=== PATIENT | female | born 1990 | race Hispanic/Latino ===

== ENCOUNTER 2017-10-22 13:36 | Observation (INO) | payer MEDICAID ==
[2017-10-22] MEDS ORDERED: LACTATED RINGERS 1,000 ML ONE (14:11)
[2017-10-22] MEDS ORDERED: LACTATED RINGERS 1,000 ML IV ONE (14:28)
[2017-10-22 14:54] LABS: Bilirubin,Urine NEG (Negative); Blood,Urine NEG (Negative); Color,Urine Yellow (Yellow); Hyaline Casts,Urine 2 /LPF; Mucus,Urine 3+ /HPF; Nitrite,Urine NEG (Negative); Urobilinogen,Urine < 2.0 mg/dL (<2.0)
[2017-10-22 15:51] LABS: Basophils % (Auto) 0.1 % (0.0-1.8); Eosinophils % (Auto) 0.2 % (0.0-4.3); Hematocrit 29.1 % (30.3-42.9); Hemoglobin 9.7 gm/dl (10.1-14.3); Lymphocytes # (Auto) 0.6 K/mm3 (1.2-5.4); Mean Corpuscular HGB Conc 33 % (30-34); Mean Corpuscular Hemoglobin 30 pg (28-32); Mean Corpuscular Volume 91 fl (79-97); Monocytes # (Auto) 0.5 K/mm3 (0.0-0.8); Monocytes % (Auto) 4.9 % (0.0-7.3); Red Cell Distribution Width 14.8 % (13.2-15.2)
--- NOTE | 2017-10-22 15:54 | History and Physical Report ---
History of Present Illness Date of examination: 10/22/17 (pt sent from office with flu sx) History of present illness: EDC Confirmation: 11/21/2017 Gestational Age: 11 weeks Past History : 3 Term Births: 1 Premature Births: 0 Living Children: 1 Para: 1 Mult. Births: 0 Prev : 0 Aborta: 1 Elect. Ab: 1 Spont. Ab: 1 Ectopics: 0 # 1 Delivery date: 11/11/2014 Weeks Gestation: 15 Delivery type: Vaginal Hours of labor: 30 Anesthesia type: epidural Delivery location: [facility] Sex: unknown weight: 0.94 Comments: / induction # 2 Delivery date: 02/29/2016 Weeks Gestation: 39 Delivery type: Vaginal Anesthesia type: epidural Delivery location: [facility] Infant Sex: female weight: 7.06 Comments: gestational diabetes; drug use; depression Past Medical History: Reviewed history from 02/09/2016 and no changes required: H/o drug abuse Depression hospitalized x 10 weeks(2015) Past Surgical History: Reviewed history from 02/13/2012 and no changes required: Negative Past Surgical History Past Medical History Abnormal PAP: negative TAMMY Exposure: negative Infertility: negative Uterine Anomaly: negative Uterine Surgery (not C/S): negative Other Gynecologic Problems: negative Social Hx: Patient is single ist time: 18 yo hx drug use and inpatient drug treatment Infection History Hx of STD: none HIV Risk Eval: no Hepatitis B Risk Eval: low risk Personal hx. of genital herpes: no Partner hx. of genital herpes: no Rash, Viral, or Febrile illness since last LMP? no Varicella/Chicken Pox Status: Previous Disease Genetic History Congenital Heart Defect: Mom: no Dad: no Jose Disease: Mom: no Dad: no Thalassemia Mom: no Dad: no Neural Tube Defect Mom: no Dad: no Down's Syndrome Mom: no Dad: no Sukhdev-Sachs Mom: no Dad: no Sickle Cell Disease/Trait Mom: no Dad: no Hemophilia Mom: no Dad: no Muscular Dystrophy Mom: no Dad: no Cystic Fibrosis Mom: no Dad: no Adriano Chorea Mom: no Dad: no Mental Retardation Mom: no Dad: no Fragile X Mom: no Dad: no Other Genetic/Chromosomal Disorder Mom: no Dad: no Child w/other defect Mom: no Dad: no Enviromental Exposures Xray Exposure: no Medication, drug, or alcohol use since LMP: no Chemical/Other Exposure: no Exposure to Cat Liter: no Hx of Parvovirus (Fifth Disease): no Occupational Exposure to Children: none Active Medications (reviewed today): IBUPROFEN 600 MG TABS (IBUPROFEN) 1 po q6hrs as directed prn FERROUS SULFATE 325 (65 FE) MG TABS (FERROUS SULFATE) 1 po BID CELEXA 10MG () PLUS 27-1 MG TABS ( VIT-FE FUMARATE-FA) 1 po Current Allergies (reviewed today): * PNC (Critical) Laboratory Results Routine Urinalysis Leukocytes: 2+ Nitrite: negative Urobilinogen: negative Protein: negative Blood: negative Ketone: negative Bilirubin: negative Glucose: negative Urine HCG: positive Review of Systems General Denies fever, chills, sweats, anorexia, fatigue, weakness, malaise, weight loss and sleep disorder. Complains of nausea and vomiting. Denies headache, swelling of legs, abdominal pain, vaginal discharge, vaginal bleeding and contractions. Denies vaginal discharge, incontinence, dysuria, hematuria, urinary frequency, amenorrhea, menorrhagia, abnormal vaginal bleeding, pelvic pain, genital sores, decreased libido, painful periods, painful sex, urinary urgency, hot flashes, vaginal dryness, vaginal itching and vaginal odor. CV Denies chest pains, palpitations, syncope, dyspnea on exertion, orthopnea, PND and peripheral edema. Resp Denies cough, dyspnea at rest, excessive sputum, hemoptysis, wheezing and pleurisy. GI Denies nausea, vomiting, diarrhea, constipation, change in bowel habits, abdominal pain, melena, hematochezia, jaundice, gas/bloating, indigestion/ heartburn, dysphagia and odynophagia. Endo Denies cold intolerance, heat intolerance, polydipsia, polyphagia, polyuria and unusual weight change. Breast Denies left breast lump, right breast lump, nipple discharge, bloody discharge from nipple, breast pain, abnormal mammogram and breast enlargement. MS Denies back pain, joint pain, joint swelling, muscle cramps, muscle weakness, stiffness, arthritis, sciatica, restless legs, leg pain at night and leg pain with exertion. Derm Denies rash, itching, dryness and suspicious lesions. Neuro Denies paralysis, paresthesias, headache, seizures, tremors, vertigo, transient blindness, frequent falls, frequent headaches and difficulty walking. Psych Denies depression, anxiety, irritability and mood swings. Eyes Denies blurring, diplopia, irritation, discharge, vision loss, eye pain and photophobia. ENT Denies earache, ear discharge, tinnitus, decreased hearing, nasal congestion, nosebleeds, sore throat and hoarseness. Allergy Denies urticaria, allergic rash, hay fever and recurrent infections. Heme Denies abnormal bruising, bleeding and enlarged lymph nodes. PHYSICAL EXAM HEENT: PERRLA, normal conjunctiva, external nose and nasal mucosa normal, oropharynx clear Neck/Thyroid: supple, thyroid normal Skin no significant abnormal lesions or rashes Chest: respiratory effort normal, clear to auscultation Breasts: normal without skin changes or masses CV: regular, normal S1-S2, no murmur, no rub, no gallop Abdomen: normal bowel sounds, soft, nontender, no HSM Musculoskeletal: grossly normal ROM in joints, no joint tenderness or muscle weakness Neuro: grossly normal DTRs, sensation, strength, cranial nerves Extremities: no clubbing, cyanosis, or edema [employer] Exams Vulva/Vagina: No lesions, normal BUS, normal rugae Cervix: No lesions; no cervical motion tenderness Uterus: normal size and position, midline, mobile Fundal Ht: 10-12wks size: AGA FHT: + Adnexae: no masses or tenderness Rectovaginal: no masses or tenderness Past History - Obstetrical History Expected Date of Delivery: 11/21/17 Actual Gestation: 35 Week(s) 6 Day(s) : 3 Para: 1 Hx # Term Pregnancies: 1 Spontaneous Abortions: 1 (demise @ 15 weeks) Number of Living Children: 1 Medications and Allergies Allergies Allergy/AdvReac Type Severity Reaction Status Date / Time Penicillins Allergy Unknown Verified 11/09/14 13:11 tree nut Allergy Swelling Verified 11/09/14 13:12 Home Medications Medication Instructions Recorded Confirmed Last Taken Type Promethazine [Phenergan TAB] 25 mg PO PRN PRN 10/22/17 10/22/17 10/22/17 History Benzonatate [Tessalon Perles] 100 mg PO Q8HR PRN #20 capsule 10/23/17 Unknown Rx Active Meds: Active Medications Acetaminophen (Tylenol) 1,000 mg PO Q6H PRN PRN Reason: Pain, Mild (1-3) Lactated Ringer's (Lactated Ringers) 1,000 mls @ 500 mls/hr IV DIRECT MINOR Oseltamivir Phosphate (Tamiflu) 75 mg PO BID MINOR Stop: 10/26/17 22:01 - Vital Signs Vital signs: Vital Signs Temp Resp 100.3 F H 20 10/22/17 14:00 10/22/17 14:00 Temp Pulse Resp BP Pulse Ox 100.3 F H 138 H 20 112/67 99 10/22/17 14:00 10/22/17 15:55 10/22/17 14:00 10/22/17 15:37 10/22/17 15:55 - Physical Exam Breasts: Positive: deferred Cardiovascular: Regular rate, Normal S1, Normal S2 Lungs: Positive: Other (cough; mild wheezing) Abdomen: Positive: normal appearance, soft, normal bowel sounds. Negative: distention, tenderness Genitourinary (Female): Positive: normal external genitalia Vulva: both: normal Vagina: Positive: normal moisture. Negative: discharge Cervix: Negative: lesion, discharge Uterus: Positive: normal size, normal contour Adnexa: both: normal Anus/Rectum: Positive: normal perianal skin, heme negative. Negative: rectal mass, hemorrhoids Extremities: Deep Tendon Reflex Grade: Normal +2 - Obstetrical FHR: category 1 (tachycardia; pt is febrile/dehydrated) Uterine Contraction Monitor Mode: External Uterine Contraction Pattern: Irregular Uterine Tone Measurement Phase: Resting Uterine Contraction Intensity: Mild Results Result Diagrams: 10/22/17 14:15 10/22/17 14:15 Abnormal lab results 10/22/17 Range/Units 14:00 Urine WBC (Auto) 21.0 H (0.0-6.0) /HPF U Epithel Cells (Auto) 28.0 H (0-13.0) /HPF All other labs normal. HBsAg Screen Negative Negative *1 Rubella Antibodies, IgG 2.32 index Immune >0.99 *2 Non-immune <0.90 Equivocal 0.90 - 0.99 Immune >0.99 ABO Grouping B *3 Rh Factor Positive *4 Please note: Prior records for this patient's ABO / Rh type are not available for additional verification. Antibody Screen Negative Negative *5 RPR Non Reactive Non Reactive *6 WBC 8.3 x10E3/uL 3.4-10.8 *7 RBC 4.04 x10E6/uL 3.77-5.28 *8 Hemoglobin 12.9 g/dL 11.1-15.9 *9 Hematocrit 39.0 % 34.0-46.6 *10 MCV 97 fL 79-97 *11 MCH 31.9 pg 26.6-33.0 *12 MCHC 33.1 g/dL 31.5-35.7 *13 RDW 14.2 % 12.3-15.4 *14 Platelets [L] 128 x10E3/uL 150-379 *15 Neutrophils 69 % *16 Lymphs 25 % *17 Monocytes 4 % *18 Eos 2 % *19 Basos 0 % *20 ! Immature Cells <No Reported Value> *21 Neutrophils (Absolute) 5.8 x10E3/uL 1.4-7.0 *22 Lymphs (Absolute) 2.0 x10E3/uL 0.7-3.1 *23 Monocytes(Absolute) 0.3 x10E3/uL 0.1-0.9 *24 Eos (Absolute) 0.2 x10E3/uL 0.0-0.4 *25 Baso (Absolute) 0.0 x10E3/uL 0.0-0.2 *26 ! Immature Granulocytes 0 % *27 ! Immature Grans (Abs) 0.0 x10E3/uL 0.0-0.1 *28 ! NRBC <No Reported Value> *29 Hematology Comments: <No Reported Value> *30 Tests: (2) AFP Tetra ([id number]) ! Results Report *31 ! Test Results: *Screen Negative* *32 ! Tests: (3) Cystic Fibrosis Profile (381587) ! CF, Screen Comment: *55 RESULTS: Negative for 32 mutations analyzed Tests: (4) HB Solu + Rflx Fra (834235) Hemoglobin (Hgb) Solubility Negative Negative *57 Tests: (5) Panel [id number] ([id number]) HIV Screen 4th Generation wRfx Non Reactive Non Reactive *58 Tests: (6) HCV Ab w/Rflx to Verification ([id number]) ! HCV Ab <0.1 s/co ratio 0.0-0.9 *59 Tests: (7) Comment: ([id number]) ! Comment: SPRCS *60 Non reactive HCV antibody screen is consistent with no HCV infection, unless recent infection is suspected or other evidence exists to indicate HCV infection. Tests: (8) Urine Culture, Routine ([id number]) Urine Culture, Routine Final report *61 Tests: (9) Result ([id number]) ! Result 1 No growth *62 Assessment and Plan Rapid flu negative. Will observe due to tachy and ctx Consulted with Orders as noted
[2017-10-22] MEDS ORDERED: VISTARIL IM PRN (15:58)
[2017-10-22] MEDS ORDERED: PHENERGAN PR PRN (15:58)
[2017-10-22] MEDS ORDERED: LACTATED RINGERS 1,000 ML IV SCH (16:00)
[2017-10-22 16:06] LABS: Alanine Aminotransferase 8 units/L (7-56); Albumin 3.1 g/dL (3.9-5); BUN/Creatinine Ratio 10; Blood Urea Nitrogen 4 mg/dL (7-17); Calcium 8.4 mg/dL (8.4-10.2); Hemolysis Index 36
[2017-10-22 16:25] LABS: Platelet Count 96 K/mm3 (140-440)
[2017-10-22 16:51] LABS: Amphetamine Screen,Urine PRESUMPTIVE NEGATIVE; Benzodiazepines Screen,Urine PRESUMPTIVE NEGATIVE; Cannabinoid Screen,Urine PRESUMPTIVE NEGATIVE; Cocaine Screen,Urine PRESUMPTIVE NEGATIVE; Methadone Screen,Urine PRESUMPTIVE NEGATIVE; Opiate Screen,Urine PRESUMPTIVE NEGATIVE
[2017-10-22] MEDS: TYLENOL PO PRN ×2 (16:57→22:16)
[2017-10-22] MEDS ORDERED: SUDAFED 12 HR PO PRN (16:59)
[2017-10-22] MEDS ORDERED: DEEP SEA NS PRN (17:00)
[2017-10-22] MEDS ORDERED: BENADRYL PO PRN (17:00)
[2017-10-22] MEDS ORDERED: SUDAFED PO PRN (17:00)
[2017-10-22] MEDS ORDERED: TYLENOL PO PRN (17:00)
[2017-10-22] MEDS ORDERED: GUAIFENESIN DM SYRUP PO PRN (17:00)
[2017-10-22] MEDS ORDERED: COLACE PO PRN (17:00)
[2017-10-22] MEDS: TAMIFLU PO SCH (17:16)
[2017-10-22] MEDS ORDERED: PEPCID IV ONE ×2 (18:44→19:00)
[2017-10-22] MEDS: ZOFRAN IV PRN (18:49)
[2017-10-22] MEDS: LACTATED RINGERS 1,000 ML IV SCH ×2 (20:34→23:11)
[2017-10-23] MEDS: LACTATED RINGERS 1,000 ML IV SCH (03:59)
[2017-10-23] MEDS: ZOFRAN IV PRN (04:53)
[2017-10-23] MEDS: TYLENOL PO PRN (05:42)
[2017-10-23] MEDS: TAMIFLU PO SCH (05:42)
[2017-10-23] MEDS ORDERED: TESSALON PERLES PO SCH (06:00)
--- NOTE | 2017-10-23 06:05 | Progress Note ---
Assessment and Plan Pt resting c/o coughing states the cough syrup bone her chest Will order Tessalon perles Stop Tamilflu Flu screen negative Will encourage pt to use IS Will consult with maternal HR >110 Subjective - Subjective Date of service: 10/23/17 ( tachy continues; occassional ctx) Interval history: EDC Confirmation: 11/21/2017 Gestational Age: 11 weeks Past History : 3 Term Births: 1 Premature Births: 0 Living Children: 1 Para: 1 Mult. Births: 0 Prev : 0 Aborta: 1 Elect. Ab: 1 Spont. Ab: 1 Ectopics: 0 # 1 Delivery date: 11/11/2014 Weeks Gestation: 15 Delivery type: Vaginal Hours of labor: 30 Anesthesia type: epidural Delivery location: [facility] Sex: unknown weight: 0.94 Comments: / induction # 2 Delivery date: 02/29/2016 Weeks Gestation: 39 Delivery type: Vaginal Anesthesia type: epidural Delivery location: [facility] Sex: female weight: 7.06 Comments: gestational diabetes; drug use; depression Past Medical History: Reviewed history from 02/09/2016 and no changes required: H/o drug abuse Depression hospitalized x 10 weeks(2015) Past Surgical History: Reviewed history from 02/13/2012 and no changes required: Negative Past Surgical History Past Medical History Abnormal PAP: negative TAMMY Exposure: negative Infertility: negative Uterine Anomaly: negative Uterine Surgery (not C/S): negative Other Gynecologic Problems: negative Social Hx: Patient is single ist time: 18 yo hx drug use and inpatient drug treatment Infection History Hx of STD: none HIV Risk Eval: no Hepatitis B Risk Eval: low risk Personal hx. of genital herpes: no Partner hx. of genital herpes: no Rash, Viral, or Febrile illness since last LMP? no Varicella/Chicken Pox Status: Previous Disease Genetic History Congenital Heart Defect: Mom: no Dad: no Jose Disease: Mom: no Dad: no Thalassemia Mom: no Dad: no Neural Tube Defect Mom: no Dad: no Down's Syndrome Mom: no Dad: no Sukhdev-Sachs Mom: no Dad: no Sickle Cell Disease/Trait Mom: no Dad: no Hemophilia Mom: no Dad: no Muscular Dystrophy Mom: no Dad: no Cystic Fibrosis Mom: no Dad: no [employer] Chorea Mom: no Dad: no Mental Retardation Mom: no Dad: no Fragile X Mom: no Dad: no Other Genetic/Chromosomal Disorder Mom: no Dad: no Child w/other defect Mom: no Dad: no Enviromental Exposures Xray Exposure: no Medication, drug, or alcohol use since LMP: no Chemical/Other Exposure: no Exposure to Cat Liter: no Hx of Parvovirus (Fifth Disease): no Occupational Exposure to Children: none Active Medications (reviewed today): IBUPROFEN 600 MG TABS (IBUPROFEN) 1 po q6hrs as directed prn FERROUS SULFATE 325 (65 FE) MG TABS (FERROUS SULFATE) 1 po BID CELEXA 10MG () PLUS 27-1 MG TABS ( VIT-FE FUMARATE-FA) 1 po Current Allergies (reviewed today): * PNC (Critical) Laboratory Results Routine Urinalysis Leukocytes: 2+ Nitrite: negative Urobilinogen: negative Protein: negative Blood: negative Ketone: negative Bilirubin: negative Glucose: negative Urine HCG: positive Review of Systems General Denies fever, chills, sweats, anorexia, fatigue, weakness, malaise, weight loss and sleep disorder. Complains of nausea and vomiting. Denies headache, swelling of legs, abdominal pain, vaginal discharge, vaginal bleeding and contractions. Denies vaginal discharge, incontinence, dysuria, hematuria, urinary frequency, amenorrhea, menorrhagia, abnormal vaginal bleeding, pelvic pain, genital sores, decreased libido, painful periods, painful sex, urinary urgency, hot flashes, vaginal dryness, vaginal itching and vaginal odor. CV Denies chest pains, palpitations, syncope, dyspnea on exertion, orthopnea, PND and peripheral edema. Resp Denies cough, dyspnea at rest, excessive sputum, hemoptysis, wheezing and pleurisy. GI Denies nausea, vomiting, diarrhea, constipation, change in bowel habits, abdominal pain, melena, hematochezia, jaundice, gas/bloating, indigestion/ heartburn, dysphagia and odynophagia. Endo Denies cold intolerance, heat intolerance, polydipsia, polyphagia, polyuria and unusual weight change. Breast Denies left breast lump, right breast lump, nipple discharge, bloody discharge from nipple, breast pain, abnormal mammogram and breast enlargement. MS Denies back pain, joint pain, joint swelling, muscle cramps, muscle weakness, stiffness, arthritis, sciatica, restless legs, leg pain at night and leg pain with exertion. Derm Denies rash, itching, dryness and suspicious lesions. Neuro Denies paralysis, paresthesias, headache, seizures, tremors, vertigo, transient blindness, frequent falls, frequent headaches and difficulty walking. Psych Denies depression, anxiety, irritability and mood swings. Eyes Denies blurring, diplopia, irritation, discharge, vision loss, eye pain and photophobia. ENT Denies earache, ear discharge, tinnitus, decreased hearing, nasal congestion, nosebleeds, sore throat and hoarseness. Allergy Denies urticaria, allergic rash, hay fever and recurrent infections. Heme Denies abnormal bruising, bleeding and enlarged lymph nodes. PHYSICAL EXAM HEENT: PERRLA, normal conjunctiva, external nose and nasal mucosa normal, oropharynx clear Neck/Thyroid: supple, thyroid normal Skin no significant abnormal lesions or rashes Chest: respiratory effort normal, clear to auscultation Breasts: normal without skin changes or masses CV: regular, normal S1-S2, no murmur, no rub, no gallop Abdomen: normal bowel sounds, soft, nontender, no HSM Musculoskeletal: grossly normal ROM in joints, no joint tenderness or muscle weakness Neuro: grossly normal DTRs, sensation, strength, cranial nerves Extremities: no clubbing, cyanosis, or edema [employer] Exams Vulva/Vagina: No lesions, normal BUS, normal rugae Cervix: No lesions; no cervical motion tenderness Uterus: normal size and position, midline, mobile Fundal Ht: 10-12wks size: AGA FHT: + Adnexae: no masses or tenderness Rectovaginal: no masses or tenderness Patient reports: movement normal, other ("I feel like crap.") Objective - Vital Signs Vital Signs: Vital Signs - 12hr 10/22/17 10/22/17 10/22/17 19:18 19:21 19:26 Temperature 98.8 F Pulse Rate 133 H 130 H 124 H Respiratory 13 Rate Blood Pressure 96/60 Blood Pressure 96/60 [Right] O2 Sat by Pulse 96 96 Oximetry 10/22/17 10/22/17 10/22/17 19:31 19:36 19:41 Temperature Pulse Rate 125 H 124 H 124 H Respiratory Rate Blood Pressure Blood Pressure [Right] O2 Sat by Pulse 95 97 97 Oximetry 10/22/17 10/22/17 10/22/17 19:53 19:58 20:03 Temperature Pulse Rate 128 H 115 H 110 H Respiratory Rate Blood Pressure 97/56 Blood Pressure [Right] O2 Sat by Pulse 97 97 97 Oximetry 10/22/17 10/22/17 10/22/17 20:08 20:13 20:18 Temperature Pulse Rate 96 H 116 H 116 H Respiratory Rate Blood Pressure Blood Pressure [Right] O2 Sat by Pulse 97 98 96 Oximetry 10/22/17 10/22/17 10/22/17 20:23 20:28 20:37 Temperature Pulse Rate 119 H 114 H 125 H Respiratory Rate Blood Pressure 93/56 Blood Pressure [Right] O2 Sat by Pulse 95 97 99 Oximetry 10/22/17 10/22/17 10/22/17 20:42 20:47 20:52 Temperature Pulse Rate 121 H 113 H 121 H Respiratory Rate Blood Pressure Blood Pressure [Right] O2 Sat by Pulse 97 99 100 Oximetry 10/22/17 10/22/17 10/22/17 20:57 21:02 21:16 Temperature Pulse Rate 119 H 120 H 90 Respiratory Rate Blood Pressure Blood Pressure [Right] O2 Sat by Pulse 99 100 70 L Oximetry 10/22/17 10/22/17 10/22/17 21:17 21:22 21:27 Temperature Pulse Rate 127 H 121 H 125 H Respiratory Rate Blood Pressure Blood Pressure [Right] O2 Sat by Pulse 100 99 100 Oximetry 10/22/17 10/22/17 10/22/17 21:30 21:32 21:33 Temperature 98.7 F Pulse Rate 125 H 120 H 118 H Respiratory 12 Rate Blood Pressure 102/66 Blood Pressure 102/66 [Right] O2 Sat by Pulse 100 100 Oximetry 10/22/17 10/22/17 10/22/17 21:37 21:42 21:47 Temperature Pulse Rate 119 H 128 H 122 H Respiratory Rate Blood Pressure Blood Pressure [Right] O2 Sat by Pulse 99 99 100 Oximetry 10/22/17 10/22/17 10/22/17 21:52 21:57 22:02 Temperature Pulse Rate 116 H 114 H 116 H Respiratory Rate Blood Pressure Blood Pressure [Right] O2 Sat by Pulse 100 99 99 Oximetry 10/22/17 10/22/17 10/22/17 22:07 22:12 22:16 Temperature Pulse Rate 115 H 119 H 129 H Respiratory Rate Blood Pressure Blood Pressure [Right] O2 Sat by Pulse 99 98 82 L Oximetry 10/22/17 10/22/17 10/22/17 22:17 22:18 22:22 Temperature 98.4 F Pulse Rate 131 H 121 H 127 H Respiratory Rate Blood Pressure Blood Pressure [Right] O2 Sat by Pulse 98 100 Oximetry 10/22/17 10/22/17 10/22/17 22:27 22:32 22:37 Temperature Pulse Rate 118 H 115 H 119 H Respiratory Rate Blood Pressure Blood Pressure [Right] O2 Sat by Pulse 99 98 99 Oximetry 10/22/17 10/22/17 10/22/17 22:40 22:42 22:47 Temperature Pulse Rate 117 H 121 H 122 H Respiratory Rate Blood Pressure 97/59 Blood Pressure [Right] O2 Sat by Pulse 99 98 Oximetry 10/22/17 10/22/17 10/22/17 22:52 23:01 23:06 Temperature Pulse Rate 119 H 123 H 122 H Respiratory Rate Blood Pressure Blood Pressure [Right] O2 Sat by Pulse 98 100 97 Oximetry 10/22/17 10/22/17 10/22/17 23:11 23:16 23:21 Temperature Pulse Rate 117 H 108 H 113 H Respiratory Rate Blood Pressure Blood Pressure [Right] O2 Sat by Pulse 99 99 97 Oximetry 10/22/17 10/22/17 10/22/17 23:26 23:31 23:36 Temperature Pulse Rate 102 H 102 H 94 H Respiratory Rate Blood Pressure Blood Pressure [Right] O2 Sat by Pulse 98 98 98 Oximetry 10/22/17 10/22/17 10/22/17 23:41 23:46 23:57 Temperature Pulse Rate 96 H 115 H 119 H Respiratory Rate Blood Pressure Blood Pressure [Right] O2 Sat by Pulse 98 99 98 Oximetry 10/23/17 10/23/17 10/23/17 00:02 00:07 00:12 Temperature Pulse Rate 119 H 120 H 119 H Respiratory Rate Blood Pressure Blood Pressure [Right] O2 Sat by Pulse 97 97 96 Oximetry 10/23/17 10/23/17 10/23/17 00:17 00:22 00:27 Temperature Pulse Rate 118 H 114 H 115 H Respiratory Rate Blood Pressure Blood Pressure [Right] O2 Sat by Pulse 96 96 95 Oximetry 10/23/17 10/23/17 10/23/17 00:32 01:44 01:48 Temperature 98.3 F Pulse Rate 122 H 115 H 122 H Respiratory 13 Rate Blood Pressure 101/54 Blood Pressure 101/54 [Right] O2 Sat by Pulse 96 98 97 Oximetry 10/23/17 10/23/17 10/23/17 01:53 01:58 02:03 Temperature Pulse Rate 115 H 108 H 111 H Respiratory Rate Blood Pressure Blood Pressure [Right] O2 Sat by Pulse 96 96 96 Oximetry 10/23/17 10/23/17 10/23/17 02:08 02:13 02:18 Temperature Pulse Rate 112 H 113 H 114 H Respiratory Rate Blood Pressure Blood Pressure [Right] O2 Sat by Pulse 97 97 96 Oximetry 10/23/17 10/23/17 10/23/17 02:23 02:28 02:33 Temperature Pulse Rate 116 H 115 H 115 H Respiratory Rate Blood Pressure Blood Pressure [Right] O2 Sat by Pulse 96 96 97 Oximetry 10/23/17 10/23/17 10/23/17 02:38 02:39 02:43 Temperature Pulse Rate 117 H 126 H 109 H Respiratory Rate Blood Pressure 90/60 Blood Pressure [Right] O2 Sat by Pulse 97 99 Oximetry 10/23/17 10/23/17 10/23/17 02:48 02:53 02:58 Temperature Pulse Rate 110 H 100 H 103 H Respiratory Rate Blood Pressure Blood Pressure [Right] O2 Sat by Pulse 99 99 97 Oximetry 10/23/17 10/23/17 10/23/17 03:03 03:08 03:13 Temperature Pulse Rate 108 H 109 H 123 H Respiratory Rate Blood Pressure Blood Pressure [Right] O2 Sat by Pulse 83 L 97 98 Oximetry 10/23/17 10/23/17 10/23/17 03:18 03:23 03:28 Temperature Pulse Rate 111 H 110 H 103 H Respiratory Rate Blood Pressure Blood Pressure [Right] O2 Sat by Pulse 94 95 96 Oximetry 10/23/17 10/23/17 10/23/17 03:30 03:33 03:37 Temperature Pulse Rate 112 H 112 H 111 H Respiratory Rate Blood Pressure Blood Pressure [Right] O2 Sat by Pulse 94 95 94 Oximetry 10/23/17 10/23/17 10/23/17 03:38 03:39 03:43 Temperature Pulse Rate 109 H 115 H 111 H Respiratory Rate Blood Pressure 86/51 Blood Pressure [Right] O2 Sat by Pulse 94 94 Oximetry 10/23/17 10/23/17 10/23/17 03:44 03:48 03:53 Temperature Pulse Rate 112 H 117 H 114 H Respiratory Rate Blood Pressure Blood Pressure [Right] O2 Sat by Pulse 94 93 94 Oximetry 10/23/17 10/23/17 10/23/17 03:58 04:01 04:03 Temperature Pulse Rate 115 H 108 H 111 H Respiratory Rate Blood Pressure Blood Pressure [Right] O2 Sat by Pulse 92 94 94 Oximetry 10/23/17 10/23/17 10/23/17 04:08 04:13 04:18 Temperature Pulse Rate 120 H 114 H 113 H Respiratory Rate Blood Pressure Blood Pressure [Right] O2 Sat by Pulse 92 94 92 Oximetry 10/23/17 10/23/17 10/23/17 04:21 04:23 04:28 Temperature Pulse Rate 107 H 105 H 124 H Respiratory Rate Blood Pressure Blood Pressure [Right] O2 Sat by Pulse 94 91 94 Oximetry 10/23/17 10/23/17 10/23/17 04:33 04:38 04:39 Temperature Pulse Rate 110 H 116 H 120 H Respiratory Rate Blood Pressure 92/50 Blood Pressure [Right] O2 Sat by Pulse 98 98 Oximetry 10/23/17 10/23/17 10/23/17 04:41 04:43 04:50 Temperature Pulse Rate 122 H 120 H 137 H Respiratory Rate Blood Pressure Blood Pressure [Right] O2 Sat by Pulse 94 94 98 Oximetry 10/23/17 10/23/17 10/23/17 04:55 05:00 05:05 Temperature Pulse Rate 129 H 123 H 122 H Respiratory Rate Blood Pressure Blood Pressure [Right] O2 Sat by Pulse 99 98 99 Oximetry 10/23/17 10/23/17 10/23/17 05:07 05:10 05:15 Temperature Pulse Rate 56 L 111 H 106 H Respiratory Rate Blood Pressure Blood Pressure [Right] O2 Sat by Pulse 88 100 97 Oximetry 10/23/17 10/23/17 10/23/17 05:20 05:32 05:41 Temperature 100.6 F H Pulse Rate 105 H 105 H 122 H Respiratory 14 Rate Blood Pressure 101/55 Blood Pressure [Right] O2 Sat by Pulse 97 Oximetry 10/23/17 10/23/17 10/23/17 05:50 05:55 06:00 Temperature Pulse Rate 116 H 125 H 122 H Respiratory Rate Blood Pressure Blood Pressure [Right] O2 Sat by Pulse 96 98 96 Oximetry - Exam Breasts: deferred Cardiovascular: Regular rate Lungs: Other (nonproductive cough) Abdomen: Present: normal appearance, soft. Absent: distention, tenderness Uterus: Present: normal FHR: auscultation normal, other (tachycardia + variability) Uterine Contraction Monitor Mode: External Uterine Contraction Pattern: Irregular Uterine Contraction Intensity: Mild Extremities: normal - Labs Labs: Abnormal Labs 10/22/17 10/22/17 10/22/17 14:00 14:15 14:15 RBC 3.20 L Hgb 9.7 L Hct 29.1 L Plt Count 96 L Lymph % (Auto) 6.0 L Lymph # 0.6 L Seg Neutrophils % 88.8 H Seg Neutrophils # 8.9 H Sodium 136 L Carbon Dioxide 20 L BUN 4 L Creatinine 0.4 L Total Protein 6.0 L Albumin 3.1 L Urine WBC (Auto) 21.0 H U Epithel Cells (Auto) 28.0 H Laboratory Results - last 24 hr 10/22/17 10/22/17 10/22/17 14:00 14:00 14:14 WBC RBC Hgb Hct MCV MCH MCHC RDW Plt Count Lymph % (Auto) [place] % (Auto) Eos % (Auto) Baso % (Auto) Lymph # [place] # Eos # Baso # Seg Neutrophils % Seg Neutrophils # Sodium Potassium Chloride Carbon Dioxide Anion Gap BUN Creatinine Estimated GFR BUN/Creatinine Ratio Glucose Calcium Total Bilirubin AST ALT Alkaline Phosphatase Total Protein Albumin Albumin/Globulin Ratio Urine Color Yellow Urine Turbidity Clear Urine pH 5.0 Ur Specific [place] 1.020 Urine Protein 30 mg/dl Urine Glucose (UA) Neg Urine Ketones 80 Urine Blood Neg Urine Nitrite Neg Urine Bilirubin Neg Urine Urobilinogen < 2.0 Ur Leukocyte Esterase Lg Urine WBC (Auto) 21.0 H Urine RBC (Auto) 4.0 U Epithel Cells (Auto) 28.0 H Hyaline Casts 2 Urine Mucus 3+ Urine Opiates Screen Presumptive negative Urine Methadone Screen Presumptive negative Ur Barbiturates Screen Presumptive negative Ur Phencyclidine Scrn Presumptive negative Ur Amphetamines Screen Presumptive negative U Benzodiazepines Scrn Presumptive negative Urine Cocaine Screen Presumptive negative U Marijuana (THC) Screen Presumptive negative Drugs of Abuse Note Disclamer Blood Type B POSITIVE Antibody Screen Negative 10/22/17 10/22/17 14:15 14:15 WBC 10.0 RBC 3.20 L Hgb 9.7 L Hct 29.1 L MCV 91 MCH 30 MCHC 33 RDW 14.8 Plt Count 96 L Lymph % (Auto) 6.0 L [place] % (Auto) 4.9 Eos % (Auto) 0.2 Baso % (Auto) 0.1 Lymph # 0.6 L [place] # 0.5 Eos # 0.0 Baso # 0.0 Seg Neutrophils % 88.8 H Seg Neutrophils # 8.9 H Sodium 136 L Potassium 4.0 Chloride 99.0 Carbon Dioxide 20 L Anion Gap 21 BUN 4 L Creatinine 0.4 L Estimated GFR > 60 BUN/Creatinine Ratio 10 Glucose 67 Calcium 8.4 Total Bilirubin 0.30 AST 24 ALT 8 Alkaline Phosphatase 112 Total Protein 6.0 L Albumin 3.1 L Albumin/Globulin Ratio 1.1 Urine Color Urine Turbidity Urine pH Ur Specific [place] Urine Protein Urine Glucose (UA) Urine Ketones Urine Blood Urine Nitrite Urine Bilirubin Urine Urobilinogen Ur Leukocyte Esterase Urine WBC (Auto) Urine RBC (Auto) U Epithel Cells (Auto) Hyaline Casts Urine Mucus Urine Opiates Screen Urine Methadone Screen Ur Barbiturates Screen Ur Phencyclidine Scrn Ur Amphetamines Screen U Benzodiazepines Scrn Urine Cocaine Screen U Marijuana (THC) Screen Drugs of Abuse Note Blood Type Antibody Screen
[2017-10-23 07:36] VITALS: BP 93/53
--- NOTE | 2017-10-23 08:01 | Discharge Summary ---
Providers - Providers Date of Admission: 10/23/17 06:27 Date of discharge: 10/23/17 (severe cold) Attending physician: NADIRA BALL Primary care physician: NADIRA BALL Hospitalization Reason for admission: other (severe cold ; flu ruled out) Hospital course: pt sent from office with flu sx Rapid screen r/u flu. Pt is 35 weeks was having ctx and tachy. Both r/t pt's being dehydrated and low grade fever. Good response with IVFs and medications to tx sx. Pt will be d/c with RX and instructions. Keep next [place] appt in office. HYDRATION emphasized. Condition at discharge: Good Disposition: DC-01 TO HOME OR SELFCARE - Discharge Diagnoses (1) Flu syndrome Status: Acute Comment: f/u with PCP is sx worsen Plan - Discharge Medications Prescriptions: Benzonatate [Tessalon Perles] 100 mg PO Q8HR PRN #20 capsule PRN Reason: Cough RX: Promethazine [Phenergan SUPPOS] 25 mg OK QHS PRN #20 supp.rect PRN Reason: Nausea - Provider Discharge Summary Activity: routine Diet: routine Instructions: routine Additional instructions: [] Smoking cessation referral if applicable(refer to patient education folder for contact #) [] Refer to [facility]'s [facility] Booklet Call your doctor immediately for: * Fever > 100.5 * Heavy vaginal bleeding ( >1 pad per hour) * Severe persistent headache * Shortness of breath * Reddened, hot, painful area to leg or breast * Drainage or odor from incision. * Keep incision clean and dry at all times and follow doctor's instructions regarding bathing/showering - Follow up plan Follow up: NADIRA BALL MD [Primary Care Provider] - 7 Days (Keep next scheduled OB appointment. Take medications as prescribed. If symptoms worsen follow up with PCP. Call with contractions, lose of fluid, any vaginal bleeding. [phone] Refrain from smoking. Drink a lot of fluids.)
[2017-10-23] MEDS ORDERED: PRENATAL VITAMIN PO SCH (10:00)
[2017-10-23] MEDS ORDERED: MUCINEX ER PO SCH (10:00)
== END 2017-10-23 08:42 | disposition home or self-care (01) ==
LOC: TRG 13:36 → LD 16:20 → TRG 10-23 06:27
PROVIDERS: ADMIT Obstetrics & Gynecology; ATTEND Obstetrics & Gynecology
DX: O26.893 Other specified pregnancy related conditions, third trimester (principal); R05 Cough; O21.2 Late vomiting of pregnancy; Z3A.35 35 weeks gestation of pregnancy
CPT/HCPCS: 36415; 80053; 80307; 81001; 85025; 86850; 86900; 86901; 87400; 96361; 96374; 96375; 96376; G0378; J2405; J7120; J3410

== ENCOUNTER 2017-11-17 22:03 | Inpatient (IN) | payer MEDICAID ==
[2017-11-17] MEDS ORDERED: MINERAL OIL PO PRN (22:39)
[2017-11-17] MEDS ORDERED: ePHEDrine SULFATE IV PRN (22:39)
[2017-11-17] MEDS ORDERED: XYLOCAINE 2% INFILTRATI ONE (22:39)
[2017-11-17] MEDS ORDERED: ZOFRAN IV PRN (22:39)
[2017-11-17] MEDS ORDERED: BRETHINE IVP PRN (22:39)
[2017-11-17] MEDS ORDERED: BRETHINE SUB-Q PRN (22:39)
[2017-11-17] MEDS ORDERED: PITOCin/NS 30 UNIT/500ML 30 UNITS/500 ML BAG IV SCH ×2 (23:00)
[2017-11-17] MEDS ORDERED: PITOCin/NS 20 UNIT/1000ML DRIP 20 UNITS/1,000 ML BAG IV SCH (23:00)
[2017-11-17 23:26] LABS: Hematocrit 31.3 % (30.3-42.9); Hemoglobin 10.4 gm/dl (10.1-14.3); Mean Corpuscular HGB Conc 33 % (30-34); Mean Corpuscular Hemoglobin 29 pg (28-32); Mean Corpuscular Volume 88 fl (79-97); Platelet Count 128 K/mm3 (140-440); Red Blood Count 3.56 M/mm3 (3.65-5.03); Red Cell Distribution Width 16.2 % (13.2-15.2)
[2017-11-17] MEDS: STADOL IV PRN (23:33)
[2017-11-17] MEDS: LACTATED RINGERS 1,000 ML IV SCH (23:34)
[2017-11-18] MEDS ORDERED: ePHEDrine SULFATE IV PRN (00:41)
[2017-11-18] MEDS ORDERED: NARCAN 2 MG/2 ML IV PRN (00:41)
--- NOTE | 2017-11-18 00:41 | Anesthesia Consultation ---
Anesthesia Consult and Med Hx Date of service: 11/18/17 - Airway Anesthetic Teeth Evaluation: Good ROM Head & Neck: Adequate Mental/Hyoid Distance: Adequate Mallampati Class: Class II Intubation Access Assessment: Probably Good - Pulmonary Exam CTA: Yes - Cardiac Exam Cardiac Exam: RRR - Pre-Operative Health Status ASA Pre-Surgery Classification: ASA2 Proposed Anesthetic Plan: Epidural - Pulmonary Hx Smoking: No Hx Asthma: No COPD: No Hx Pneumonia: No - Cardiovascular System Hx Hypertension: No Hx Coronary Artery Disease: No Hx Heart Attack/AMI: No Hx Angina: No - Central Nervous System Hx Seizures: No CVA: No Hx Psychiatric Problems: Yes (depression) - Gastrointestinal Hx Gastroesophageal Reflux Disease: No - Endocrine Hx Renal Disease: No Hx End Stage Renal Disease: No Hx Liver Disease: No Hx Non-Insulin Dependent Diabetes: No Hx Thyroid Disease: No Hx Hypothyroidism: No Hx Hyperthyroidism: No - Hematic Hx Anemia: No Hx Sickle Cell Disease: No - Other Systems Hx Alcohol Use: No
[2017-11-18] MEDS: LACTATED RINGERS 1,000 ML IV SCH (00:44)
[2017-11-18] MEDS: fentaNYL-BUPIV 2 MCG/ML-0.125% 200 MCG/100 ML BAG EPIDURAL SCH ×2 (01:33→08:44)
[2017-11-18] MEDS: STADOL IV PRN (01:54)
--- NOTE | 2017-11-18 05:07 | History and Physical Report ---
History of Present Illness Date of examination: 11/18/17 Date of admission: 11/17/17 22:55 Chief complaint: 27 yo [id number] at 39 wk admitted in labor. Smoker B pos, Rub-Imm, GBS neg History of present illness: Pt was 4 cm when i arrived, called at 0445 to come for delivery but pt is only 8 cm and zero station with dense second epidural. Will allow to labor until complete. Remainder of H&P from [facility] and confirmed today OB Intake Father of baby: Sam Ugalde FOB contact #: [phone] Vital Signs Height: 57.5 in. Weight (lb): 90 BMI: 19.2 Pre- Weight: 95 BP: 96/ 64 mm Hg Ur. Protein: negative Ur. Glucose: negative Chief Complaint/Current Status: Patient presents for missed period. Patient complains of N/V.....aharris Menstrual History Regularity: regular Menses every: 30 days Duration: 5-7 LMP: 02/14/2017 LMP reliability: definite LMP character: log hooker test type: urine test BC at conception: none EDC Calculations LMP: 11/21/2017 EDC Confirmation: 11/21/2017 Gestational Age: 11 weeks Past History : 3 Term Births: 1 Premature Births: 0 Living Children: 1 Para: 1 Mult. Births: 0 Prev : 0 Aborta: 1 Elect. Ab: 1 Spont. Ab: 1 Ectopics: 0 # 1 Delivery date: 11/11/2014 Weeks Gestation: 15 Delivery type: Vaginal Hours of labor: 30 Anesthesia type: epidural Delivery location: [facility] Sex: unknown weight: 0.94 Comments: / induction # 2 Delivery date: 02/29/2016 Weeks Gestation: 39 Delivery type: Vaginal Anesthesia type: epidural Delivery location: [facility] Infant Sex: female weight: 7.06 Comments: gestational diabetes; drug use; depression Past Medical History: Reviewed history from 02/09/2016 and no changes required: H/o drug abuse Depression hospitalized x 10 weeks(2015) Past Surgical History: Reviewed history from 02/13/2012 and no changes required: Negative Past Surgical History Past Medical History Abnormal PAP: negative TAMMY Exposure: negative Infertility: negative Uterine Anomaly: negative Uterine Surgery (not C/S): negative Other Gynecologic Problems: negative Social Hx: Patient is single ist time: 18 yo hx drug use and inpatient drug treatment Infection History Hx of STD: none HIV Risk Eval: no Hepatitis B Risk Eval: low risk Personal hx. of genital herpes: no Partner hx. of genital herpes: no Rash, Viral, or Febrile illness since last LMP? no Varicella/Chicken Pox Status: Previous Disease Genetic History Congenital Heart Defect: Mom: no Dad: no Jose Disease: Mom: no Dad: no Thalassemia Mom: no Dad: no Neural Tube Defect Mom: no Dad: no Down's Syndrome Mom: no Dad: no Sukhdev-Sachs Mom: no Dad: no Sickle Cell Disease/Trait Mom: no Dad: no Hemophilia Mom: no Dad: no Muscular Dystrophy Mom: no Dad: no Cystic Fibrosis Mom: no Dad: no [place] Chorea Mom: no Dad: no Mental Retardation Mom: no Dad: no Fragile X Mom: no Dad: no Other Genetic/Chromosomal Disorder Mom: no Dad: no Child w/other defect Mom: no Dad: no Enviromental Exposures Xray Exposure: no Medication, drug, or alcohol use since LMP: no Chemical/Other Exposure: no Exposure to Cat Liter: no Hx of Parvovirus (Fifth Disease): no Occupational Exposure to Children: none Active Medications (reviewed today): IBUPROFEN 600 MG TABS (IBUPROFEN) 1 po q6hrs as directed prn FERROUS SULFATE 325 (65 FE) MG TABS (FERROUS SULFATE) 1 po BID CELEXA 10MG () PLUS 27-1 MG TABS ( VIT-FE FUMARATE-FA) 1 po Current Allergies (reviewed today): * PNC (Critical) Laboratory Results Routine Urinalysis Leukocytes: 2+ Nitrite: negative Urobilinogen: negative Protein: negative Blood: negative Ketone: negative Bilirubin: negative Glucose: negative Urine HCG: positive Review of Systems General Denies fever, chills, sweats, anorexia, fatigue, weakness, malaise, weight loss and sleep disorder. Complains of nausea and vomiting. Denies headache, swelling of legs, abdominal pain, vaginal discharge, vaginal bleeding and contractions. Denies vaginal discharge, incontinence, dysuria, hematuria, urinary frequency, amenorrhea, menorrhagia, abnormal vaginal bleeding, pelvic pain, genital sores, decreased libido, painful periods, painful sex, urinary urgency, hot flashes, vaginal dryness, vaginal itching and vaginal odor. CV Denies chest pains, palpitations, syncope, dyspnea on exertion, orthopnea, PND and peripheral edema. Resp Denies cough, dyspnea at rest, excessive sputum, hemoptysis, wheezing and pleurisy. GI Denies nausea, vomiting, diarrhea, constipation, change in bowel habits, abdominal pain, melena, hematochezia, jaundice, gas/bloating, indigestion/ heartburn, dysphagia and odynophagia. Endo Denies cold intolerance, heat intolerance, polydipsia, polyphagia, polyuria and unusual weight change. Breast Denies left breast lump, right breast lump, nipple discharge, bloody discharge from nipple, breast pain, abnormal mammogram and breast enlargement. MS Denies back pain, joint pain, joint swelling, muscle cramps, muscle weakness, stiffness, arthritis, sciatica, restless legs, leg pain at night and leg pain with exertion. Derm Denies rash, itching, dryness and suspicious lesions. Neuro Denies paralysis, paresthesias, headache, seizures, tremors, vertigo, transient blindness, frequent falls, frequent headaches and difficulty walking. Psych Denies depression, anxiety, irritability and mood swings. Eyes Denies blurring, diplopia, irritation, discharge, vision loss, eye pain and photophobia. ENT Denies earache, ear discharge, tinnitus, decreased hearing, nasal congestion, nosebleeds, sore throat and hoarseness. Allergy Denies urticaria, allergic rash, hay fever and recurrent infections. Heme Denies abnormal bruising, bleeding and enlarged lymph nodes. PHYSICAL EXAM HEENT: PERRLA, normal conjunctiva, external nose and nasal mucosa normal, oropharynx clear Neck/Thyroid: supple, thyroid normal Skin no significant abnormal lesions or rashes Chest: respiratory effort normal, clear to auscultation Breasts: normal without skin changes or masses CV: regular, normal S1-S2, no murmur, no rub, no gallop Abdomen: normal bowel sounds, soft, nontender, no HSM Musculoskeletal: grossly normal ROM in joints, no joint tenderness or muscle weakness Neuro: grossly normal DTRs, sensation, strength, cranial nerves Extremities: no clubbing, cyanosis, or edema BUN PANNER Exams Vulva/Vagina: No lesions, normal BUS, normal rugae Cervix: No lesions; no cervical motion tenderness Uterus: normal size and position, midline, mobile Fundal Ht: 10-12wks size: AGA FHT: + Adnexae: no masses or tenderness Rectovaginal: no masses or tenderness Flowsheet View for Follow-up Visit Estimated weeks of gestation: 11 Weight: 90 Blood pressure: 96 / 64 Urine protein: negative Urine glucose: negative Urine nitrite: negative Fundal height: 10-12wks FHR: + Smoking PPD: 1-2/ cigg day Current OB Labs Impression & Recommendations: Problem # 1: IRREGULAR MENSES (ICD-626.4) (ELZ85-Z65.6) The following medications were removed from the medication list: Ibuprofen 600 Mg Tabs (Ibuprofen) ..... 1 po q6hrs as directed prn Plus 27-1 Mg Tabs ( vit-fe fumarate-fa) ..... 1 po Orders: Urine Test (UPT) (CPT-53549) Ofc Vst Est 83395 (CPT-06216) Urine Chemstrip (CPT-87817) Pap(<30yo) CT/NG rflx HR HPV (Q-11868)([id number]) (CPT-57288) Missed period US (CPT-87413) Orders: Urine Test (UPT) (CPT-50045) Problem # 2: Drug abuse, hx of (ICD-V15.89) (QWZ74-B76.21) Orders: Urine Drug screen (UDS) (Q-6635)([id number]) (CPT-73806) Medications Added to Medication List This Visit: 1) Promethazine Hcl 12.5 Mg Tabs (Promethazine hcl) .... 1 po q 6 hrs prn nausea Risk Factors: Smoked Tobacco Use: Current every day smoker Cigarettes: Yes -- 1-2/ cigg day pack(s) per day, Year started: age 19 Smokeless Tobacco Use: Never Counseled to quit/cut down: yes Drug use: yes Substance: cocaine/crack HIV high-risk behavior: no Caffeine use: 1 drinks per day Alcohol use: no Exercise: no Seatbelt use: 100 % Dietary Counseling: pn yes Past History - Obstetrical History : 3 Medications and Allergies Allergies Allergy/AdvReac Type Severity Reaction Status Date / Time Penicillins Allergy Unknown Verified 11/09/14 13:11 tree nut Allergy Swelling Verified 11/09/14 13:12 Home Medications Medication Instructions Recorded Confirmed Last Taken Type Promethazine [Phenergan TAB] 25 mg PO PRN PRN 10/22/17 10/22/17 10/22/17 History Benzonatate [Tessalon Perles] 100 mg PO Q8HR PRN #20 capsule 10/23/17 Unknown Rx Promethazine [Phenergan SUPPOS] 25 mg VA QHS PRN #20 supp.rect 10/23/17 Unknown Rx Active Meds: Active Medications Butorphanol Tartrate (Stadol) 2 mg IV Q2H PRN PRN Reason: Pain , Severe (7-10) Last Admin: 11/18/17 01:54 Dose: 2 mg Ephedrine Sulfate (Ephedrine Sulfate) 10 mg IV Q2M PRN PRN Reason: Hypotension Lactated Ringer's (Lactated Ringers) 1,000 mls @ 125 mls/hr IV DIRECT MINOR Last Admin: 11/18/17 00:44 Dose: 999 mls/hr Oxytocin/Sodium Chloride (Pitocin/Ns 20 Unit/1000ml Drip) 20 units in 1,000 mls @ 125 mls/hr IV DIRECT MINOR Oxytocin/Sodium Chloride (Pitocin/Ns 30 Unit/500ml) 30 units in 500 mls @ 1 mls /hr IV TITR MINOR; 1 MILLIUNITS/MIN PRN Reason: Protocol Oxytocin/Sodium Chloride (Pitocin/Ns 30 Unit/500ml) 30 units in 500 mls @ 0 mls /hr IV TITR MINOR; Per Protocol PRN Reason: Protocol Fentanyl/Bupivacaine/Sodium Chlor (Fentanyl-Bupiv 2 Mcg/Ml-0.125%) 200 mcg in 100 mls @ 12 mls/hr EPIDURAL TITR MINOR PRN Reason: Protocol Last Admin: 11/18/17 01:33 Dose: 12 mls/hr Mineral Oil (Mineral Oil) 30 ml PO QHS PRN PRN Reason: Constipation Naloxone HCl (Narcan 2 Mg/2 Ml) 0.2 mg IV Q5M PRN PRN Reason: Respiratory sedation Ondansetron HCl (Zofran) 4 mg IV Q8H PRN PRN Reason: Nausea And Vomiting Terbutaline Sulfate (Brethine) 0.25 mg SUB-Q ONCE PRN PRN Reason: Hyperstimulation/Hypertonicity Terbutaline Sulfate (Brethine) 0.25 mg IVP ONCE PRN PRN Reason: Hyperstimulation/Hypertonicity - Vital Signs Vital signs: Vital Signs Temp Pulse Resp BP Pulse Ox 98.2 F 110 H 18 121/78 99 11/17/17 22:18 11/17/17 22:18 11/17/17 22:18 11/17/17 22:18 11/17/17 22:18 Temp Pulse Resp BP Pulse Ox 98.2 F 110 H 18 119/86 97 11/17/17 22:18 11/18/17 05:04 11/17/17 22:18 11/18/17 05:03 11/18/17 05:04 Results Result Diagrams: 11/17/17 23:15 Abnormal lab results 11/17/17 Range/Units 23:15 RBC 3.56 L (3.65-5.03) M/mm3 RDW 16.2 H (13.2-15.2) % Plt Count 128 L (140-440) K/mm3 All other labs normal. Assessment and Plan - Patient Problems (1) Active labor at term Current Visit: Yes Status: Acute Plan to address problem: delivery
[2017-11-18] MEDS ORDERED: LANSINOH TP PRN (06:38)
[2017-11-18] MEDS ORDERED: TUCKS PAD TP PRN (06:38)
[2017-11-18] MEDS ORDERED: BENADRYL PO PRN (06:38)
[2017-11-18] MEDS ORDERED: DULCOLAX PR PRN (06:38)
[2017-11-18] MEDS ORDERED: TYLENOL PO PRN (06:38)
[2017-11-18] MEDS ORDERED: MILK OF MAGNESIA PO PRN (06:38)
[2017-11-18] MEDS ORDERED: PHENERGAN PO PRN (06:38)
--- NOTE | 2017-11-18 06:53 | Procedure Note ---
OB Delivery Note - Delivery Date of Delivery: 11/18/17 Nuisance Wildlife Control Operator: GULSHAN JAMISON Estimated blood loss: 300cc - Vaginal Delivery presentation: vertex Delivery position: OA Delivery induction: none Delivery augmentation: pitocin Delivery monitor: external FHT, external uterine Route of delivery: Delivery placenta: spontaneous Delivery cord: nuchal cord, 3 umbilical vessels Episiotomy: none Delivery laceration: none Anesthesia: epidural Delivery comments: live born female over intact perineum CAN X 1 delivered through. Baby skin to skin, delay clamping. Placenta and membrane delivered complete and intact, 3 vessel cord. Pitocin IVFs. 8/9, EBL 300, Wgt 7-3. Mom and baby remain LDR stable. - Infant A at 1 minute: 8 at 5 minutes: 9 Gender: Female (wgt 7-3)
[2017-11-18] MEDS ORDERED: SODIUM CHLORIDE FLUSH SYRINGE 10 ML IV PRN (07:00)
[2017-11-18] MEDS ORDERED: BICITRA PO NR (09:00)
[2017-11-18] MEDS ORDERED: TORADOL IV NR (09:00)
[2017-11-18] MEDS ORDERED: TORADOL IM NR (09:00)
[2017-11-18] MEDS ORDERED: PRENATAL VITAMIN PO SCH (10:00)
[2017-11-18] MEDS: COLACE PO SCH ×2 (10:25→21:48)
[2017-11-18 13:07] LABS: Amphetamine Screen,Urine PRESUMPTIVE NEGATIVE; Benzodiazepines Screen,Urine PRESUMPTIVE NEGATIVE; Cannabinoid Screen,Urine PRESUMPTIVE NEGATIVE; Cocaine Screen,Urine PRESUMPTIVE NEGATIVE; Methadone Screen,Urine PRESUMPTIVE NEGATIVE; Opiate Screen,Urine PRESUMPTIVE NEGATIVE
[2017-11-18] MEDS: MOTRIN PO SCH ×2 (16:22→21:48)
[2017-11-18 19:57] LABS: Hematocrit 25.5 % (30.3-42.9); Hemoglobin 8.4 gm/dl (10.1-14.3)
[2017-11-19] MEDS: MOTRIN PO SCH (04:20)
[2017-11-19] MEDS ORDERED: BOOSTRIX IM ONE (06:00)
[2017-11-19] MEDS ORDERED: M-M-R II VACCINE SUB-Q ONE (06:38)
--- NOTE | 2017-11-19 07:16 | Discharge Summary ---
Providers - Providers Date of Admission: 11/17/17 22:55 Date of discharge: 11/19/17 (pt desires d/c ) Attending physician: RYAN RAMOS Primary care physician: RYAN ARMOS Hospitalization Reason for admission: active labor Delivery: Episiotomy: none Laceration: none Incision: normal Other procedures: none complications: none Discharge diagnosis: IUP at term delivered [place] baby: female Hospital course: uncomplicated vaginal delivery Pt resting No c/o voiced VSS FF below umb Lochia small perineum intact H&H 05/24 drop r/t blood loss from delivery Pt is asymptomatic Doing well s/p vag del P: d /c today with instructions RX sent to [facility]: po iron; colace; motrin Pt is aware they were sent. Depo for BC RTO 4 weeks PP care. Condition at discharge: Good Disposition: DC-01 TO HOME OR SELFCARE - Discharge Diagnoses (1) Spontaneous vaginal delivery Status: Acute Comment: RTO 4 weeks PP care Plan - Discharge Medications Prescriptions: Docusate Sodium [Colace] 100 mg PO BID PRN #60 capsule PRN Reason: Constipation Ferrous Sulfate [Feosol 325 MG tab] 325 mg PO BID #60 tablet Ibuprofen [Motrin 800 MG tab] 800 mg PO TID PRN #30 tablet PRN Reason: Pain - Provider Discharge Summary Activity: routine, no sex for 6 weeks, no heavy lifting 4 weeks, no strenuous exercise Diet: routine Instructions: routine Additional instructions: [] Smoking cessation referral if applicable(refer to patient education folder for contact #) [] Refer to [facility]'s [facility] Booklet Call your doctor immediately for: * Fever > 100.5 * Heavy vaginal bleeding ( >1 pad per hour) * Severe persistent headache * Shortness of breath * Reddened, hot, painful area to leg or breast * Drainage or odor from incision. * Keep incision clean and dry at all times and follow doctor's instructions regarding bathing/showering - Follow up plan Follow up: RYAN RAMOS MD [Primary Care Provider] - 12/16/17 (Congratulations! Please call [phone] to schedule your visit in 4 weeks. Take medications as prescribed. Call with concerns.)
[2017-11-19] MEDS ORDERED: DEPO-PROVERA (CONTRACEPTION) IM NR (08:00)
[2017-11-19 13:52] VITALS: BP 101/64
== END 2017-11-19 14:00 | disposition home or self-care (01) | DRG 775 ==
LOC: TRG 22:03 → LD 22:55 → OB 11-18 09:30
PROVIDERS: ADMIT Obstetrics & Gynecology; ATTEND Obstetrics & Gynecology
PROC: 10E0XZZ Delivery of Products of Conception, External Approach (ICD-10-PCS; principal; 2017-11-18)
PROC: 3E0R3BZ Introduction of Anesthetic Agent into Spinal Canal, Percutaneous Approach (ICD-10-PCS; 2017-11-18)
PROC: 00HU33Z Insertion of Infusion Device into Spinal Canal, Percutaneous Approach (ICD-10-PCS; 2017-11-18)
DX: O69.81X0 Labor and delivery complicated by cord around neck, without compression, not applicable or unspecified (principal); O99.344 Other mental disorders complicating childbirth; O99.334 Smoking (tobacco) complicating childbirth; F17.210 Nicotine dependence, cigarettes, uncomplicated; Z3A.39 39 weeks gestation of pregnancy; Z37.0 Single live birth
CPT/HCPCS: 36415; 80307; 85014; 85018; 85027; 86592; 86850; 86900; 86901; J0595; J1050; J1885; J2405; J2590; J7120; Q0169

== ENCOUNTER 2019-08-07 18:06 | Outpatient (CLI) | payer MEDICAID ==
[2019-08-07 19:09] LABS: Bacteria,Urine 2+ /HPF (Negative); Bilirubin,Urine NEG (Negative); Blood,Urine NEG (Negative); Color,Urine Yellow (Yellow); Mucus,Urine 3+ /HPF; Protein,Urine <15 mg/dL mg/dL (Negative); Urobilinogen,Urine < 2.0 mg/dL (<2.0)
[2019-08-07 19:17] LABS: Amphetamine Screen,Urine PRESUMPTIVE NEGATIVE; Benzodiazepines Screen,Urine PRESUMPTIVE NEGATIVE; Cannabinoid Screen,Urine PRESUMPTIVE NEGATIVE; Cocaine Screen,Urine PRESUMPTIVE NEGATIVE; Methadone Screen,Urine PRESUMPTIVE NEGATIVE; Opiate Screen,Urine PRESUMPTIVE NEGATIVE
[2019-08-07 19:44] VITALS: BP 102/55
[2019-08-07] MEDS ORDERED: LACTATED RINGERS 500 ML IV ONE (19:44)
[2019-08-07] MEDS ORDERED: BUTALB/ACETAMINOPHEN/CAFFEINE TAB PO ONE (22:15)
== END 2019-08-07 23:41 | disposition home or self-care (01) ==
LOC: TRG 18:06
PROVIDERS: ATTEND Obstetrics & Gynecology
DX: O26.892 Other specified pregnancy related conditions, second trimester (principal); R51 Headache; R10.9 Unspecified abdominal pain; M54.9 Dorsalgia, unspecified; O99.89 Other specified diseases and conditions complicating pregnancy, childbirth and the puerperium; H53.8 Other visual disturbances; O99.342 Other mental disorders complicating pregnancy, second trimester; F32.9 Major depressive disorder, single episode, unspecified; O99.332 Smoking (tobacco) complicating pregnancy, second trimester; F17.200 Nicotine dependence, unspecified, uncomplicated; Z3A.26 26 weeks gestation of pregnancy
CPT/HCPCS: 59025; 80307; 81001; 87076; 87086; 87186; 96365; J0690; 96360; J7120

== ENCOUNTER 2019-09-06 12:11 | Outpatient (CLI) | payer MEDICAID ==
[2019-09-06 12:27] VITALS: BP 121/82
[2019-09-06] MEDS ORDERED: LACTATED RINGERS 500 ML IV ONE (13:00)
[2019-09-06] MEDS ORDERED: ONDANSETRON 4 MG/2 ML INJ IV NR (13:00)
[2019-09-06 13:55] LABS: Bacteria,Urine 1+ /HPF (Negative); Bilirubin,Urine NEG (Negative); Blood,Urine NEG (Negative); Color,Urine Yellow (Yellow); Mucus,Urine 3+ /HPF; Urobilinogen,Urine < 2.0 mg/dL (<2.0)
[2019-09-06 14:08] LABS: Amphetamine Screen,Urine PRESUMPTIVE NEGATIVE; Benzodiazepines Screen,Urine PRESUMPTIVE NEGATIVE; Cannabinoid Screen,Urine PRESUMPTIVE NEGATIVE; Cocaine Screen,Urine PRESUMPTIVE NEGATIVE; Methadone Screen,Urine PRESUMPTIVE NEGATIVE; Opiate Screen,Urine PRESUMPTIVE NEGATIVE
== END 2019-09-06 14:21 | disposition home or self-care (01) ==
LOC: TRG 12:11
PROVIDERS: ATTEND Obstetrics & Gynecology
DX: O21.2 Late vomiting of pregnancy (principal); O26.893 Other specified pregnancy related conditions, third trimester; M54.9 Dorsalgia, unspecified; O47.03 False labor before 37 completed weeks of gestation, third trimester; O99.333 Smoking (tobacco) complicating pregnancy, third trimester; F17.200 Nicotine dependence, unspecified, uncomplicated; Z3A.30 30 weeks gestation of pregnancy
CPT/HCPCS: 59025; 80307; 81001; 87086; 96365; 96366; J2405; J7120

== ENCOUNTER 2019-09-12 22:51 | Observation (INO) | payer MEDICAID ==
[2019-09-12] MEDS ORDERED: LACTATED RINGERS 500 ML IV ONE (23:36)
[2019-09-12] MEDS ORDERED: LACTATED RINGERS 1,000 ML ONE (23:44)
[2019-09-12] MEDS ORDERED: LACTATED RINGERS 1,000 ML IV SCH (23:45)
[2019-09-12] MEDS ORDERED: ONDANSETRON 4 MG/2 ML INJ IV ONE (23:48)
[2019-09-13 00:32] LABS: Hematocrit 34.6 % (30.3-42.9); Hemoglobin 11.9 gm/dl (10.1-14.3); Mean Corpuscular HGB Conc 34 % (30-34); Mean Corpuscular Volume 91 fl (79-97); Red Cell Distribution Width 14.5 % (13.2-15.2)
[2019-09-13 00:34] LABS: Platelet Count 77 K/mm3 (140-440)
[2019-09-13 00:44] LABS: Bacteria,Urine 2+ /HPF (Negative); Bilirubin,Urine NEG (Negative); Blood,Urine NEG (Negative); Color,Urine Yellow (Yellow); Mucus,Urine 3+ /HPF; Protein,Urine <15 mg/dL mg/dL (Negative); Urobilinogen,Urine < 2.0 mg/dL (<2.0)
[2019-09-13 00:55] LABS: Alanine Aminotransferase 31 units/L (7-56)
[2019-09-13] MEDS ORDERED: PROMETHAZINE 25 MG RECT SUPP PR ONE (01:01)
[2019-09-13 01:14] LABS: Alanine Aminotransferase 31 units/L (7-56); Albumin 3.4 g/dL (3.9-5); BUN/Creatinine Ratio 18; Blood Urea Nitrogen 7 mg/dL (7-17); Calcium 8.6 mg/dL (8.4-10.2); Hemolysis Index 5
[2019-09-13 04:00] LABS: Uric Acid 3.4 mg/dL (3.5-7.6)
--- NOTE | 2019-09-13 04:30 | Ultrasound Report ---
ULTRASOUND ABDOMEN, LIMITED (RIGHT UPPER QUADRANT) INDICATION: abdominal pain. COMPARISON: None available. FINDINGS: Pancreas: Visualized portion shows no significant abnormality. Liver: Normal. Gallbladder: Normal. Bile ducts: Normal. Common Bile Duct measures 3.6 mm. Free fluid: None. Additional Findings: None. IMPRESSION: 1. No sonographic abnormality of the right upper quadrant. Signer Name: Samy Rico MD Signed: 09/13/2019 4:26 AM Workstation Name: [id number]
--- NOTE | 2019-09-13 04:33 | Ultrasound Report ---
Limited OB ultrasound for biophysical profile FINDINGS: breathing, movement, posterior, qualitative ELIUD all score 2/2 for a total score of 8/ 8. heart rate is 147 bpm. ELIUD is normal at 12.1 cm. Signer Name: Samy Rico MD Signed: 09/13/2019 4:28 AM Workstation Name: [id number]
--- NOTE | 2019-09-13 04:33 | Ultrasound Report ---
Limited OB ultrasound for biophysical profile FINDINGS: breathing, movement, posterior, qualitative ELIUD all score 2/2 for a total score of 8/ 8. heart rate is 147 bpm. ELIUD is normal at 12.1 cm. Signer Name: Samy Rico MD Signed: 09/13/2019 4:28 AM Workstation Name: [id number]
[2019-09-13] MEDS ORDERED: TERBUTALINE 1 MG/1 ML INJ SUB-Q ONE (04:52)
[2019-09-13] MEDS ORDERED: LIDOCAINE-MPF (1%) 10 MG/1 ML VIAL 5 ML INFILTRATI ONE (04:53)
[2019-09-13 09:06] VITALS: BP 116/66
--- NOTE | 2019-09-13 11:36 | Consultation ---
History of Present Illness Consult date: 09/13/19 Requesting physician: BETH EPPS Reason for consult: contractions History of present illness: Patient Name: PAMELLA GARCIA * :89 * Attending:charu Devries. Basket Filler: Elkin Lord M.D. * Date of Consultation:Friday, September 13, 2019 Indication for Admission: IUP at 31 weeks 4 days. Admitted with nausea and vomiting. Now stable. SVE: 1 cm. Arrested labor. Thank you for your recent request for a consultation for the above-named pa mita. As you are aware, this is a 29 year old para 2011 with at EGA= 31 weeks 4 days gestation (based on an KATHERINE of 11/11/19) that was admitted to [facility] due to nausea and vomiting and possible labor. At the time of admission on 09/12/19 she was stable and had a normal blood pressure * PAST OBSTETRICAL HISTORY: * See notes in chart. * SAB x 1 * 2016: at term. BW: 7 pounds 2 oz * 2018: at term. BW: 7 pounds * PAST MEDICAL AND GYNECOLOGICAL HISTORY * See notes in patients chart. * Patient does NOT have a history of CHTN * Patient has had intermittent episodes of nausea and vomiting. RUQ ULTRASOUND: * See notes on chart. * Negative CURRENT ULTRASOUND 09/12/19 * FHR: 147 BPM. SD ratio: 3.66 * BPP 8/8 * NO EFW. PHYSICAL EXAMINATION & LABORATORY FINDINGS * Blood pressure: Stable * Abdominal Exam: Benign, gravid * FHR Tracing: Category 1 * SVE: PENDING. Past History - Obstetrical History : 4 Medications and Allergies Allergies Allergy/AdvReac Type Severity Reaction Status Date / Time Penicillins Allergy Unknown Verified 11/09/14 13:11 tree nut Allergy Swelling Verified 11/09/14 13:12 Home Medications Medication Instructions Recorded Confirmed Last Taken Type Nitrofurantoin [place]/M-Cryst 100 mg PO Q12HR #14 capsule 09/13/19 Unknown Rx [Macrobid CAP] Promethazine [Phenergan] 25 mg PO Q6HR PRN #30 tab 09/13/19 Unknown Rx Active Meds: Active Medications Lactated Ringer's (Lactated Ringers) 1,000 mls @ 125 mls/hr IV DIRECT MINOR Last Admin: 09/13/19 01:37 Dose: 125 mls/hr Documented by: - Vital Signs Vital signs: Vital Signs Pulse Pulse Ox 71 98 09/12/19 23:03 09/12/19 23:03 Temp Pulse Resp BP Pulse Ox 97.9 F 78 18 116/66 97 09/13/19 06:25 09/13/19 09:05 09/13/19 03:45 09/13/19 09:05 09/13/19 09:05 Results Result Diagrams: 09/12/19 00:00 09/13/19 00:00 Abnormal lab results 09/12/19 09/12/19 09/12/19 Range/Units 00:00 00:00 00:00 WBC 11.2 H (4.5-11.0) K/mm3 Plt Count 77 L (140-440) K/mm3 Sodium (137-145) mmol/L Potassium (3.6-5.0) mmol/L Creatinine 0.4 L (0.7-1.2) mg/dL Uric Acid 3.4 L (3.5-7.6) mg/dL AST 47 H (5-40) units/L Alkaline Phosphatase (35-129) units/L Lactate Dehydrogenase 282 H (91-180) units/L Albumin (3.9-5) g/dL Urine WBC (Auto) 24.0 H (0.0-6.0) /HPF 09/13/19 Range/Units 00:00 WBC (4.5-11.0) K/mm3 Plt Count (140-440) K/mm3 Sodium 136 L (137-145) mmol/L Potassium 3.5 L (3.6-5.0) mmol/L Creatinine 0.4 L (0.7-1.2) mg/dL Uric Acid (3.5-7.6) mg/dL AST 51 H (5-40) units/L Alkaline Phosphatase 133 H (35-129) units/L Lactate Dehydrogenase (91-180) units/L Albumin 3.4 L (3.9-5) g/dL Urine WBC (Auto) (0.0-6.0) /HPF All other labs normal. Assessment and Plan RECENT LABS: See notes in chart. ASSESSMENT: * IUP at 31 weeks 4 days. * Admitted with nausea and vomiting. Now stable. * SVE: 1 cm. * Arrested labor. * We recommend steroids.Consider magnesium sulfate RECOMMENDATIONS: * We are in agreement with continued contractions for magnesium sulfate as a tocolytic and for neuroprotection. * Patient should receive steroids to mature lung parameters. * Empiric treatment for nausea and vomiting. * 24 hours observation. * We discussed the issue of early delivery in the setting of continued contractions. * Mode of delivery to be determined by OBGYN and patient based on clinical and obstetrical parameters. Thank you for allowing us to participate in the care of this patient. We look forward to the opportunity to assist in her continued management. If you have any questions, I may be reached at [phone]. Elkin Lord M.D. Maternal- Medicine Specialist
[2019-09-13 12:01] LABS: Amphetamine Screen,Urine PRESUMPTIVE NEGATIVE; Benzodiazepines Screen,Urine PRESUMPTIVE NEGATIVE; Cannabinoid Screen,Urine PRESUMPTIVE NEGATIVE; Cocaine Screen,Urine PRESUMPTIVE NEGATIVE; Methadone Screen,Urine PRESUMPTIVE NEGATIVE; Opiate Screen,Urine PRESUMPTIVE NEGATIVE
== END 2019-09-13 11:52 | disposition home or self-care (01) ==
LOC: TRG 22:51 → LD 09-13 05:54
PROVIDERS: ADMIT Obstetrics & Gynecology; ATTEND Obstetrics & Gynecology
DX: O21.2 Late vomiting of pregnancy (principal); Z3A.31 31 weeks gestation of pregnancy
CPT/HCPCS: 36415; 76705; 76815; 76819; 80053; 80307; 81001; 82565; 83615; 84450; 84460; 84550; 85027; 86850; 86900; 86901; 87086; 96372; G0378; J0696; J2405; J3105; J7120

== ENCOUNTER 2019-09-13 20:57 | Observation (INO) | payer MEDICAID, OTHER ==
[2019-09-13] MEDS ORDERED: LACTATED RINGERS 1,000 ML IV ONE (23:41)
[2019-09-13 23:58] LABS: Basophils % (Auto) 0.1 % (0.0-1.8); Eosinophils # (Auto) 0.1 K/mm3 (0.0-0.4); Eosinophils % (Auto) 0.8 % (0.0-4.3); Hematocrit 31.5 % (30.3-42.9); Hemoglobin 11.2 gm/dl (10.1-14.3); Lymphocytes # (Auto) 2.2 K/mm3 (1.2-5.4); Lymphocytes % (Auto) 18.8 % (13.4-35.0); Mean Corpuscular HGB Conc 36 % (30-34); Mean Corpuscular Volume 90 fl (79-97); Monocytes # (Auto) 0.5 K/mm3 (0.0-0.8); Monocytes % (Auto) 4.2 % (0.0-7.3); Red Blood Count 3.49 M/mm3 (3.65-5.03); Red Cell Distribution Width 14.7 % (13.2-15.2)
[2019-09-13 23:59] LABS: Platelet Count 59 K/mm3 (140-440)
[2019-09-14 00:17] LABS: Alanine Aminotransferase 32 units/L (7-56); Albumin 3.3 g/dL (3.9-5); BUN/Creatinine Ratio 15; Blood Urea Nitrogen 6 mg/dL (7-17); Hemolysis Index 10
[2019-09-14] MEDS ORDERED: LACTATED RINGERS 500 ML IV ONE (00:19)
[2019-09-14 00:40] LABS: Amphetamine Screen,Urine PRESUMPTIVE NEGATIVE; Benzodiazepines Screen,Urine PRESUMPTIVE NEGATIVE; Cannabinoid Screen,Urine PRESUMPTIVE NEGATIVE; Cocaine Screen,Urine PRESUMPTIVE NEGATIVE; Methadone Screen,Urine PRESUMPTIVE NEGATIVE; Opiate Screen,Urine PRESUMPTIVE NEGATIVE
[2019-09-14 00:41] LABS: Bacteria,Urine 1+ /HPF (Negative); Bilirubin,Urine NEG (Negative); Blood,Urine NEG (Negative); Color,Urine Straw (Yellow); Protein,Urine <15 mg/dL mg/dL (Negative); Urobilinogen,Urine < 2.0 mg/dL (<2.0)
[2019-09-14] MEDS ORDERED: DOCUSATE SODIUM 100 MG CAP PO PRN (00:56)
[2019-09-14] MEDS ORDERED: fentaNYL 100 MCG/2 ML INJ IV ONE (00:56)
[2019-09-14] MEDS ORDERED: ZOLPIDEM 5 MG TAB PO PRN (00:56)
[2019-09-14] MEDS ORDERED: BUTORPHANOL 2 MG/1 ML INJ IV PRN (00:56)
[2019-09-14 00:57] LABS: RBC,Urine < 1.0 /HPF (0.0-6.0)
[2019-09-14] MEDS ORDERED: LACTATED RINGERS 1,000 ML IV SCH (01:00)
[2019-09-14] MEDS ORDERED: MAGNESIUM SULFATE 4 GM/100 ML BAG IV ONE (01:13)
[2019-09-14] MEDS ORDERED: MAGNESIUM SULFATE 40GM/1000ML 40 GM/1,000 ML BAG IV SCH (02:00)
[2019-09-14 02:05] LABS: Calcium 9.2 mg/dL (8.4-10.2); Uric Acid 3.3 mg/dL (3.5-7.6)
[2019-09-14] MEDS: BETAMET ACET/BETAMET NA PH 6 MG/ML INJ 5 ML MDV IM SCH (02:52)
[2019-09-14] MEDS: ONDANSETRON 4 MG/2 ML INJ IV PRN (03:33)
--- NOTE | 2019-09-14 05:16 | Ultrasound Report ---
OB ultrasound FINDINGS: Single fetus is identified in vertex presentation. heart rate is 132 bpm. ELIUD is norm al at 11.2 cm. Appropriate measurements reveal an MA of 29 weeks 1 day for an KATHERINE of 11/29/2019. This i s behind the clinical dates by almost 3 weeks. Estimated weight is 1223 +/-181 g. Biophysical profile FINDINGS: breathing movement, motion, tone and qualitative ELIUD all score 2/2 for a score of 8/8. heart rate was 132 bpm. ELIUD was 11.2 cm Signer Name: Samy Rico MD Signed: 09/14/2019 5:12 AM Workstation Name: [email or web address]
--- NOTE | 2019-09-14 05:22 | Ultrasound Report ---
See earlier report. Signer Name: Samy Rico MD Signed: 09/14/2019 5:17 AM Workstation Name: [id number]
[2019-09-14] MEDS: ACETAMINOPHEN 325 MG TAB PO PRN ×2 (09:46→21:32)
[2019-09-14] MEDS ORDERED: PRENATAL VIT27-FE FUMARATE-FOLIC ACID VIT TAB PO SCH (10:00)
[2019-09-14 10:23] LABS: Hematocrit 35.2 % (30.3-42.9); Hemoglobin 12.1 gm/dl (10.1-14.3); Mean Corpuscular HGB Conc 34 % (30-34); Mean Corpuscular Volume 92 fl (79-97); Red Blood Count 3.84 M/mm3 (3.65-5.03); Red Cell Distribution Width 15.2 % (13.2-15.2)
[2019-09-14 10:29] LABS: Platelet Count 58 K/mm3 (140-440)
[2019-09-14 10:34] LABS: INR 0.91 (0.87-1.13); Partial Thromboplastin Time 30.4 Sec. (24.2-36.6)
[2019-09-14 10:51] LABS: Alanine Aminotransferase 41 units/L (7-56); Albumin 3.3 g/dL (3.9-5); BUN/Creatinine Ratio 8; Blood Urea Nitrogen 4 mg/dL (7-17); Calcium 7.2 mg/dL (8.4-10.2); Hemolysis Index 12
--- NOTE | 2019-09-14 13:53 | History and Physical Report ---
History of Present Illness Date of examination: 09/14/19 Date of admission: 09/14/19 00:19 Chief complaint: contractionsand elevated BP History of present illness: This is a 29 yo , patient of Dr. Osman came in c/o contractions and was presented to triage yesterday . She comed in c/o pain and n/v. Patient had US upper GI neg. FFN performed as neg. She had elevated BP 150/90s and started on mag and BMZ. Labs showed abn liver enzyme and low plts. Doppler reported as normal with EFW 1223g. Patient admitted to service without chart readily available Past History Past Medical History: no pertinent history Family/Genetic History: none - Obstetrical History : 4 Para: 1 Medications and Allergies Allergies Allergy/AdvReac Type Severity Reaction Status Date / Time Penicillins Allergy Unknown Verified 11/09/14 13:11 tree nut Allergy Swelling Verified 11/09/14 13:12 Home Medications Medication Instructions Recorded Confirmed Last Taken Type Nitrofurantoin [place]/M-Cryst 100 mg PO Q12HR #14 capsule 09/13/19 Unknown Rx [Macrobid CAP] Promethazine [Phenergan] 25 mg PO Q6HR PRN #30 tab 09/13/19 Unknown Rx Active Meds: Active Medications Acetaminophen (Tylenol) 650 mg PO Q4H PRN PRN Reason: Pain MILD(1-3)/Fever >100.5/FLORES Last Admin: 09/14/19 09:46 Dose: 650 mg Documented by: Betamethasone Acet/Betameth SodPhos (Celestone Soluspan) 12 mg IM Q24H [facility] Stop: 09/15/19 02:01 Last Admin: 09/14/19 02:52 Dose: 12 mg Documented by: Butorphanol Tartrate (Stadol) 2 mg IV Q2H PRN PRN Reason: Labor Pain Docusate Sodium (Colace) 100 mg PO Q12H PRN PRN Reason: Constipation Last Admin: 09/14/19 09:45 Dose: 100 mg Documented by: Lactated Ringer's (Lactated Ringers) 1,000 mls @ 125 mls/hr IV DIRECT MINOR Magnesium Sulfate (Magnesium Sulfate 40gm/1000ml) 40 gm in 1,000 mls @ 50 mls/ hr IV DIRECT MINOR Last Admin: 09/14/19 02:32 Dose: 2 gm/hr, 50 mls/hr Documented by: Labetalol HCl (Labetalol) 100 mg PO BID [facility] Last Admin: 09/14/19 09:45 Dose: 100 mg Documented by: Multivitamins/Iron/Calcium ( Vitamin) 1 each PO QDAY [facility] Last Admin: 09/14/19 09:46 Dose: 1 each Documented by: Ondansetron HCl (Zofran) 4 mg IV Q8H PRN PRN Reason: Nausea And Vomiting Last Admin: 09/14/19 03:33 Dose: 4 mg Documented by: Zolpidem Tartrate (Ambien) 5 mg PO QHS PRN PRN Reason: Sleep Review of Systems All systems: negative Gastrointestinal: vomiting - Vital Signs Vital signs: Vital Signs Pulse Pulse Ox 65 92 09/14/19 01:14 09/14/19 01:14 Temp Pulse Resp BP Pulse Ox 97.8 F 94 H 20 101/59 96 09/14/19 12:27 09/14/19 13:45 09/14/19 12:27 09/14/19 12:59 09/14/19 13:45 - Physical Exam Breasts: Positive: normal Cardiovascular: Regular rate, Normal S1 Lungs: Positive: Clear to auscultation, Normal air movement Abdomen: Positive: normal appearance, soft, normal bowel sounds. Negative: distention, tenderness, guarding Genitourinary (Female): Positive: normal external genitalia, normal perenium Vagina: Positive: normal moisture Uterus: Positive: normal size, normal contour Anus/Rectum: Positive: normal perianal skin Extremities: Positive: normal Deep Tendon Reflex Grade: Normal +2 - Obstetrical Cervical Dilatation: 1 Cervical Effacement Percentage: 40 station: -3 Results Result Diagrams: 09/14/19 10:01 09/14/19 10:01 Abnormal lab results 09/13/19 09/13/19 09/13/19 Range/Units 23:30 23:30 23:30 WBC 11.6 H (4.5-11.0) K/mm3 RBC 3.49 L (3.65-5.03) M/mm3 MCHC 36 H (30-34) % Plt Count 59 L (140-440) K/mm3 Seg Neutrophils % 76.1 H (40.0-70.0) % Seg Neutrophils # 8.8 H (1.8-7.7) K/mm3 D-Dimer (0-234) ng/mlDDU Sodium (137-145) mmol/L Carbon Dioxide (22-30) mmol/L BUN 6 L (7-17) mg/dL Creatinine 0.4 L (0.7-1.2) mg/dL Glucose (65-100) mg/dL Uric Acid 3.3 L (3.5-7.6) mg/dL Calcium (8.4-10.2) mg/dL Magnesium (1.7-2.3) mg/dL AST 50 H (5-40) units/L Lactate Dehydrogenase 389 H (91-180) units/L Total Protein (6.3-8.2) g/dL Albumin 3.3 L (3.9-5) g/dL Ur Specific [place] 1.002 L (1.003-1.030) 09/14/19 09/14/19 09/14/19 Range/Units 05:52 10:01 10:01 WBC (4.5-11.0) K/mm3 RBC (3.65-5.03) M/mm3 MCHC (30-34) % Plt Count 58 L (140-440) K/mm3 Seg Neutrophils % (40.0-70.0) % Seg Neutrophils # (1.8-7.7) K/mm3 D-Dimer (0-234) ng/mlDDU Sodium 134 L (137-145) mmol/L Carbon Dioxide 20 L (22-30) mmol/L BUN 4 L (7-17) mg/dL Creatinine 0.5 L (0.7-1.2) mg/dL Glucose 183 H (65-100) mg/dL Uric Acid (3.5-7.6) mg/dL Calcium 7.2 L D (8.4-10.2) mg/dL Magnesium 6.20 H (1.7-2.3) mg/dL AST 60 H (5-40) units/L Lactate Dehydrogenase (91-180) units/L Total Protein 6.2 L (6.3-8.2) g/dL Albumin 3.3 L (3.9-5) g/dL Ur Specific [place] (1.003-1.030) 09/14/19 Range/Units 10:01 WBC (4.5-11.0) K/mm3 RBC (3.65-5.03) M/mm3 MCHC (30-34) % Plt Count (140-440) K/mm3 Seg Neutrophils % (40.0-70.0) % Seg Neutrophils # (1.8-7.7) K/mm3 D-Dimer 1030.94 H (0-234) ng/mlDDU Sodium (137-145) mmol/L Carbon Dioxide (22-30) mmol/L BUN (7-17) mg/dL Creatinine (0.7-1.2) mg/dL Glucose (65-100) mg/dL Uric Acid (3.5-7.6) mg/dL Calcium (8.4-10.2) mg/dL Magnesium (1.7-2.3) mg/dL AST (5-40) units/L Lactate Dehydrogenase (91-180) units/L Total Protein (6.3-8.2) g/dL Albumin (3.9-5) g/dL Ur Specific [place] (1.003-1.030) All other labs normal. Ultrasound: report reviewed Assessment and Plan A.P Crosscover for Dr. Whitney Osman IUP 31 weeks elevated BP - suspect PIH/HELLP PT contractions admit , IVF, labs ( PIH) US BPP EFW, doppler and RUQ US consult with [facility] Mag 4/2 intitated for PTL, PIH and neuroprotection continuous maternal and monitoring repeat labs ( add d-dimer and fibrinogen)
--- NOTE | 2019-09-14 13:57 | Consultation ---
History of Present Illness Consult date: 09/14/19 Requesting physician: KINA HERNANDEZ History of present illness: Ms. Ugalde is a 29 -KATHERINE 11/11/19 now 31 5/7 weeks NOW with Elevated Justine er Enz and Low Platelets Presented with lower back pain over past 2 weeks and N/V Seen at [facility] yesterday and discharged the returned per patient Also contractions - now 2 in a 30 minute period - / -3 --------- BP's on admission elevated 144/96. 150/96 and 153/97 No FLORES's [place] , No RUQ Pain First Dose Steroids given and on Mg [facility] US 09/14/19 EFW at 1223 grams 0% - BPP 8/8 and EFM 120's reactive categ I [facility] US 09/07/19 EFW at 1200 grams 1% Labs 09/13/19 09/14/19 Plts at 59K 58K AST/ALT at 50/32 60/40 PT/PTT 12.3/30.4 - normal Fibrinogen 456 H/H 11.2/31.4 Creat at .4 .5 OB history 2016 Term F 7'1" 2018 Term F 7'2" No med ds - denies h/o thrombocytopenia when not preg or with other preg (same FOC) No Surg Smoker - 1/2 pack per day Denies drugs or ETOH No STD All PCN Past History - Obstetrical History : 4 Medications and Allergies Allergies Allergy/AdvReac Type Severity Reaction Status Date / Time Penicillins Allergy Unknown Verified 11/09/14 13:11 tree nut Allergy Swelling Verified 11/09/14 13:12 Home Medications Medication Instructions Recorded Confirmed Last Taken Type Nitrofurantoin [place]/M-Cryst 100 mg PO Q12HR #14 capsule 09/13/19 Unknown Rx [Macrobid CAP] Promethazine [Phenergan] 25 mg PO Q6HR PRN #30 tab 09/13/19 Unknown Rx Active Meds: Active Medications Acetaminophen (Tylenol) 650 mg PO Q4H PRN PRN Reason: Pain MILD(1-3)/Fever >100.5/FLORES Last Admin: 09/14/19 09:46 Dose: 650 mg Documented by: Betamethasone Acet/Betameth SodPhos (Celestone Soluspan) 12 mg IM Q24H [facility] Stop: 09/15/19 02:01 Last Admin: 09/14/19 02:52 Dose: 12 mg Documented by: Butorphanol Tartrate (Stadol) 2 mg IV Q2H PRN PRN Reason: Labor Pain Docusate Sodium (Colace) 100 mg PO Q12H PRN PRN Reason: Constipation Last Admin: 09/14/19 09:45 Dose: 100 mg Documented by: Lactated Ringer's (Lactated Ringers) 1,000 mls @ 125 mls/hr IV DIRECT MINOR Magnesium Sulfate (Magnesium Sulfate 40gm/1000ml) 40 gm in 1,000 mls @ 50 mls/hr IV DIRECT MINOR Last Admin: 09/14/19 02:32 Dose: 2 gm/hr, 50 mls/hr Documented by: Labetalol HCl (Labetalol) 100 mg PO BID [facility] Last Admin: 09/14/19 09:45 Dose: 100 mg Documented by: Multivitamins/Iron/Calcium ( Vitamin) 1 each PO QDAY [facility] Last Admin: 09/14/19 09:46 Dose: 1 each Documented by: Ondansetron HCl (Zofran) 4 mg IV Q8H PRN PRN Reason: Nausea And Vomiting Last Admin: 09/14/19 03:33 Dose: 4 mg Documented by: Zolpidem Tartrate (Ambien) 5 mg PO QHS PRN PRN Reason: Sleep - Vital Signs Vital signs: Vital Signs Pulse Pulse Ox 65 92 09/14/19 01:14 09/14/19 01:14 Temp Pulse Resp BP Pulse Ox 97.8 F 94 H 20 101/59 96 09/14/19 12:27 09/14/19 13:45 09/14/19 12:27 09/14/19 12:59 09/14/19 13:45 Results Result Diagrams: 09/14/19 10:01 09/14/19 10:01 Abnormal lab results 09/13/19 09/13/19 09/13/19 Range/Units 23:30 23:30 23:30 WBC 11.6 H (4.5-11.0) K/mm3 RBC 3.49 L (3.65-5.03) M/mm3 MCHC 36 H (30-34) % Plt Count 59 L (140-440) K/mm3 Seg Neutrophils % 76.1 H (40.0-70.0) % Seg Neutrophils # 8.8 H (1.8-7.7) K/mm3 D-Dimer (0-234) ng/mlDDU Sodium (137-145) mmol/L Carbon Dioxide (22-30) mmol/L BUN 6 L (7-17) mg/dL Creatinine 0.4 L (0.7-1.2) mg/dL Glucose (65-100) mg/dL Uric Acid 3.3 L (3.5-7.6) mg/dL Calcium (8.4-10.2) mg/dL Magnesium (1.7-2.3) mg/dL AST 50 H (5-40) units/L Lactate Dehydrogenase 389 H (91-180) units/L Total Protein (6.3-8.2) g/dL Albumin 3.3 L (3.9-5) g/dL Ur Specific [place] 1.002 L (1.003-1.030) 09/14/19 09/14/19 09/14/19 Range/Units 05:52 10:01 10:01 WBC (4.5-11.0) K/mm3 RBC (3.65-5.03) M/mm3 MCHC (30-34) % Plt Count 58 L (140-440) K/mm3 Seg Neutrophils % (40.0-70.0) % Seg Neutrophils # (1.8-7.7) K/mm3 D-Dimer (0-234) ng/mlDDU Sodium 134 L (137-145) mmol/L Carbon Dioxide 20 L (22-30) mmol/L BUN 4 L (7-17) mg/dL Creatinine 0.5 L (0.7-1.2) mg/dL Glucose 183 H (65-100) mg/dL Uric Acid (3.5-7.6) mg/dL Calcium 7.2 L D (8.4-10.2) mg/dL Magnesium 6.20 H (1.7-2.3) mg/dL AST 60 H (5-40) units/L Lactate Dehydrogenase (91-180) units/L Total Protein 6.2 L (6.3-8.2) g/dL Albumin 3.3 L (3.9-5) g/dL Ur Specific [place] (1.003-1.030) 09/14/19 Range/Units 10:01 WBC (4.5-11.0) K/mm3 RBC (3.65-5.03) M/mm3 MCHC (30-34) % Plt Count (140-440) K/mm3 Seg Neutrophils % (40.0-70.0) % Seg Neutrophils # (1.8-7.7) K/mm3 D-Dimer 1030.94 H (0-234) ng/mlDDU Sodium (137-145) mmol/L Carbon Dioxide (22-30) mmol/L BUN (7-17) mg/dL Creatinine (0.7-1.2) mg/dL Glucose (65-100) mg/dL Uric Acid (3.5-7.6) mg/dL Calcium (8.4-10.2) mg/dL Magnesium (1.7-2.3) mg/dL AST (5-40) units/L Lactate Dehydrogenase (91-180) units/L Total Protein (6.3-8.2) g/dL Albumin (3.9-5) g/dL Ur Specific [place] (1.003-1.030) All other labs normal. Assessment and Plan Impression 1. Maxwell IUP at 31 4/7 weeks 2. Preeclampsia with Severe Features - HELLP 3. Severe IUGR - EFW at 0% 4. Smoker 5. Back Pain 6. N/V Recommendations 1. Steroids for FLM 2. Mg for neuroprophylaxis and seizure prophylaxis 3. Type and Screen for 2 units PRBC's and Plts 4. US - Cord arterial dopplers 5. Recommend induction after steroid complete if fetus not tolerating labor would need Platelet transfusion prior to C/S if Plts < 50K 6. NICU consult 7. Anesth consult to be prepared should plts drop , Hem , or C/S is required 8. Repeat CBC, PT, PTT, Fibrinogen , CMP q 12 hours 9. IV hydralazine for BP's Sys > 160 or baptiste > 110
[2019-09-14] MEDS ORDERED: BUTALB/ACETAMINOPHEN/CAFFEINE TAB PO PRN (14:39)
--- NOTE | 2019-09-14 16:47 | Ultrasound Report ---
Umbilical cord Doppler INDICATION: Severe growth restriction FINDINGS: heart rate is 121 bpm The SD ratio average is 5.26. The highest measurement is 5.98. This is abnormal. The waveform is abno rmal. End-diastolic flow pattern is persistent. Resistive index average is 0.8. IMPRESSION: This is an abnormal exam. The S/D ratio ( average) is 5.26 Signer Name: Allen Quezada MD Signed: 09/14/2019 4:43 PM Workstation Name: [id number]
[2019-09-15] MEDS: BETAMET ACET/BETAMET NA PH 6 MG/ML INJ 5 ML MDV IM SCH (03:27)
[2019-09-15] MEDS: ACETAMINOPHEN 325 MG TAB PO PRN (04:43)
[2019-09-15] MEDS: ONDANSETRON 4 MG/2 ML INJ IV PRN (04:43)
[2019-09-15 09:00] LABS: INR 0.88 (0.87-1.13); Partial Thromboplastin Time 28.2 Sec. (24.2-36.6)
[2019-09-15 09:09] LABS: Hematocrit 30.5 % (30.3-42.9); Hemoglobin 10.4 gm/dl (10.1-14.3); Mean Corpuscular Volume 92 fl (79-97); Red Blood Count 3.32 M/mm3 (3.65-5.03)
[2019-09-15 09:10] LABS: Mean Corpuscular HGB Conc 34 % (30-34); Platelet Count 72 K/mm3 (140-440); Red Cell Distribution Width 15.3 % (13.2-15.2)
--- NOTE | 2019-09-15 09:12 | Progress Note ---
Assessment and Plan IUP at 31+ weeks here with low platelets. She initially had contractions and thought she was in labor however, her blood pressure was also elevated and she was thought to have prreclampsia. Pt did not receive antihypertensives last night and her pressure has been completely normal. Pt does have known IUGR. Will monitor BP today and if she remains stable will discharge to home with outpatient follow up and twice weekly bpp. Subjective - Subjective Date of service: 09/15/19 Patient reports: new complaints (patient stressed about "everything") Objective - Vital Signs Vital Signs: Vital Signs - 12hr 09/14/19 09/14/19 09/14/19 21:08 21:13 21:18 Pulse Rate 77 79 80 Blood Pressure O2 Sat by Pulse 97 96 97 Oximetry 09/14/19 09/14/19 09/14/19 21:23 21:28 21:33 Pulse Rate 80 81 89 Blood Pressure O2 Sat by Pulse 97 97 98 Oximetry 09/14/19 09/14/19 09/14/19 21:38 21:43 21:48 Pulse Rate 86 82 84 Blood Pressure O2 Sat by Pulse 97 97 97 Oximetry 09/14/19 09/14/19 09/14/19 21:53 21:58 21:59 Pulse Rate 80 83 80 Blood Pressure 108/70 O2 Sat by Pulse 97 97 Oximetry 09/14/19 09/14/19 09/14/19 22:03 22:08 22:13 Pulse Rate 82 77 83 Blood Pressure O2 Sat by Pulse 97 97 97 Oximetry 09/14/19 09/14/19 09/14/19 22:18 22:23 22:28 Pulse Rate 80 80 91 H Blood Pressure O2 Sat by Pulse 97 96 98 Oximetry 09/14/19 09/14/19 09/14/19 22:33 22:38 22:43 Pulse Rate 76 87 78 Blood Pressure O2 Sat by Pulse 97 97 96 Oximetry 09/14/19 09/14/19 09/14/19 22:48 22:53 22:58 Pulse Rate 76 79 73 Blood Pressure O2 Sat by Pulse 97 98 97 Oximetry 09/14/19 09/14/19 09/14/19 22:59 23:03 23:08 Pulse Rate 75 80 80 Blood Pressure 103/59 O2 Sat by Pulse 97 96 Oximetry 09/14/19 09/14/19 09/14/19 23:13 23:18 23:23 Pulse Rate 78 76 79 Blood Pressure O2 Sat by Pulse 97 96 95 Oximetry 09/14/19 09/14/19 09/14/19 23:28 23:33 23:38 Pulse Rate 73 76 78 Blood Pressure O2 Sat by Pulse 95 95 95 Oximetry 09/14/19 09/14/19 09/14/19 23:43 23:48 23:53 Pulse Rate 75 77 74 Blood Pressure O2 Sat by Pulse 95 95 95 Oximetry 09/14/19 09/14/19 09/15/19 23:58 23:59 00:03 Pulse Rate 76 79 73 Blood Pressure 98/68 O2 Sat by Pulse 95 96 Oximetry 09/15/19 09/15/19 09/15/19 00:08 00:13 00:18 Pulse Rate 72 74 74 Blood Pressure O2 Sat by Pulse 96 96 96 Oximetry 09/15/19 09/15/19 09/15/19 00:23 00:28 00:33 Pulse Rate 77 80 81 Blood Pressure O2 Sat by Pulse 96 96 96 Oximetry 09/15/19 09/15/19 09/15/19 00:38 00:43 00:48 Pulse Rate 77 80 84 Blood Pressure O2 Sat by Pulse 96 96 96 Oximetry 09/15/19 09/15/19 09/15/19 00:53 00:57 00:58 Pulse Rate 86 85 88 Blood Pressure O2 Sat by Pulse 96 94 96 Oximetry 09/15/19 09/15/19 09/15/19 00:59 01:03 01:08 Pulse Rate 83 81 81 Blood Pressure 106/67 O2 Sat by Pulse 96 96 Oximetry 09/15/19 09/15/19 09/15/19 01:13 01:16 01:18 Pulse Rate 82 82 82 Blood Pressure O2 Sat by Pulse 95 94 96 Oximetry 09/15/19 09/15/19 09/15/19 01:23 01:28 01:33 Pulse Rate 81 83 94 H Blood Pressure O2 Sat by Pulse 96 95 97 Oximetry 09/15/19 09/15/19 09/15/19 01:38 01:43 01:48 Pulse Rate 72 72 72 Blood Pressure O2 Sat by Pulse 96 96 96 Oximetry 09/15/19 09/15/19 09/15/19 01:53 01:58 01:59 Pulse Rate 74 79 75 Blood Pressure 100/59 O2 Sat by Pulse 95 97 Oximetry 09/15/19 09/15/19 09/15/19 02:03 02:04 02:09 Pulse Rate 76 74 82 Blood Pressure O2 Sat by Pulse 96 97 96 Oximetry 09/15/19 09/15/19 09/15/19 02:14 02:19 02:24 Pulse Rate 75 73 76 Blood Pressure O2 Sat by Pulse 97 98 98 Oximetry 09/15/19 09/15/19 09/15/19 02:29 02:34 02:39 Pulse Rate 71 76 71 Blood Pressure O2 Sat by Pulse 98 98 98 Oximetry 09/15/19 09/15/19 09/15/19 02:44 02:49 02:54 Pulse Rate 79 74 72 Blood Pressure O2 Sat by Pulse 98 98 98 Oximetry 09/15/19 09/15/19 09/15/19 02:59 03:04 03:09 Pulse Rate 72 70 74 Blood Pressure O2 Sat by Pulse 98 98 97 Oximetry 09/15/19 09/15/19 09/15/19 03:14 03:19 03:24 Pulse Rate 71 76 69 Blood Pressure 109/69 O2 Sat by Pulse 98 98 98 Oximetry 09/15/19 09/15/19 03:29 04:26 Pulse Rate 77 76 Blood Pressure 122/77 O2 Sat by Pulse 98 Oximetry - Exam Breasts: deferred Cardiovascular: Regular rate, Normal S1, Normal S2 Lungs: Clear to auscultation, Normal air movement Abdomen: Present: normal appearance, soft, normal bowel sounds Uterus: Present: normal, firm FHR: auscultation normal Cervical Dilatation: 2 - Labs Labs: Abnormal Labs 09/13/19 09/13/19 09/13/19 23:30 23:30 23:30 WBC 11.6 H RBC 3.49 L MCHC 36 H Plt Count 59 L Seg Neutrophils % 76.1 H Seg Neutrophils # 8.8 H PT D-Dimer Sodium Carbon Dioxide BUN 6 L Creatinine 0.4 L Glucose Uric Acid 3.3 L Calcium Magnesium AST 50 H Lactate Dehydrogenase 389 H Total Protein Albumin 3.3 L Ur Specific [place] 1.002 L 09/14/19 09/14/19 09/14/19 05:52 10:01 10:01 WBC RBC MCHC Plt Count 58 L Seg Neutrophils % Seg Neutrophils # PT D-Dimer Sodium 134 L Carbon Dioxide 20 L BUN 4 L Creatinine 0.5 L Glucose 183 H Uric Acid Calcium 7.2 L D Magnesium 6.20 H AST 60 H Lactate Dehydrogenase Total Protein 6.2 L Albumin 3.3 L Ur Specific [place] 09/14/19 09/15/19 10:01 05:50 WBC RBC MCHC Plt Count Seg Neutrophils % Seg Neutrophils # PT 12.0 L D-Dimer 1030.94 H Sodium Carbon Dioxide BUN Creatinine Glucose Uric Acid Calcium Magnesium AST Lactate Dehydrogenase Total Protein Albumin Ur Specific [place] Laboratory Results - last 24 hr 09/14/19 09/14/19 09/14/19 10:01 10:01 10:01 WBC 8.5 RBC 3.84 Hgb 12.1 Hct 35.2 MCV 92 MCH 31 MCHC 34 RDW 15.2 Plt Count 58 L PT 12.3 INR 0.91 APTT 30.4 Fibrinogen 456 D-Dimer 1030.94 H Sodium 134 L Potassium 4.4 Chloride 98.1 Carbon Dioxide 20 L Anion Gap 20 BUN 4 L Creatinine 0.5 L Estimated GFR > 60 BUN/Creatinine Ratio 8 Glucose 183 H Calcium 7.2 L D Total Bilirubin 0.40 AST 60 H ALT 41 Alkaline Phosphatase 129 Total Protein 6.2 L Albumin 3.3 L Albumin/Globulin Ratio 1.1 09/15/19 05:50 WBC RBC Hgb Hct MCV MCH MCHC RDW Plt Count PT 12.0 L INR 0.88 APTT 28.2 Fibrinogen D-Dimer Sodium Potassium Chloride Carbon Dioxide Anion Gap BUN Creatinine Estimated GFR BUN/Creatinine Ratio Glucose Calcium Total Bilirubin AST ALT Alkaline Phosphatase Total Protein Albumin Albumin/Globulin Ratio
[2019-09-15 11:37] LABS: Basophils % (Auto) 0.1 % (0.0-1.8); Hematocrit 30.8 % (30.3-42.9); Hemoglobin 10.4 gm/dl (10.1-14.3); Lymphocytes # (Auto) 0.8 K/mm3 (1.2-5.4); Lymphocytes % (Auto) 10.1 % (13.4-35.0); Mean Corpuscular HGB Conc 34 % (30-34); Mean Corpuscular Volume 92 fl (79-97); Monocytes # (Auto) 0.1 K/mm3 (0.0-0.8); Platelet Count 79 K/mm3 (140-440); Red Blood Count 3.35 M/mm3 (3.65-5.03)
[2019-09-15 11:41] VITALS: BP 107/57
--- NOTE | 2019-09-15 12:54 | Progress Note ---
Assessment and Plan A- Maxwell IUP at 31.5 weeks Severe IUGR - EFW at 0% Suspected Preeclampsia with Severe Features - HELLP Recent labs 09/15/19- Platelets 79 ( up from 72, 58), AST/ALT 60/41, PT 12.0, INR 0.88 Blood pressures- 90s-120s/50s-70s No documented 24 hour urine protein Complains of RISHI pain, headaches ( some relief with ordered pain management), Occasional blurred vision to right eye Normal deep tendon reflexes PTL- 1cm dilated, FFN negative S/P Magnesium Sulfate and Betamethasone x 2 Smoker p- 1. Continue with inpatient conservative management 2. Document 24 hour urine protein 3. Repeat CBC, CMP, and Coags tomorrow 4. BPP twice weekly while hospitalized including cord arterial dopplers and MCAs ( Saturday, ) 5. Monitor for worsening PIH symptoms. 6. NICU as needed 7. Recommend induction for worsening symptoms or nonreassuring behavior. Consider Platelet transfusion prior to C/S if Plts < 50K. For additional questions/concerns, please contact ELOY DOWLING construction management assistant. Thank you. Subjective - Subjective Date of service: 09/15/19 Patient reports: new complaints (Complains of headaches, occasional RUQ pain, and occasional blurred vision in right eye. She denies edema), no loss of fluid, no vaginal bleeding, no contractions Objective - Vital Signs Vital Signs: Vital Signs - 12hr 09/15/19 09/15/19 09/15/19 00:57 00:58 00:59 Temperature Pulse Rate 85 88 83 Respiratory Rate Blood Pressure 106/67 O2 Sat by Pulse 94 96 Oximetry 09/15/19 09/15/19 09/15/19 01:03 01:08 01:13 Temperature Pulse Rate 81 81 82 Respiratory Rate Blood Pressure O2 Sat by Pulse 96 96 95 Oximetry 09/15/19 09/15/19 09/15/19 01:16 01:18 01:23 Temperature Pulse Rate 82 82 81 Respiratory Rate Blood Pressure O2 Sat by Pulse 94 96 96 Oximetry 09/15/19 09/15/19 09/15/19 01:28 01:33 01:38 Temperature Pulse Rate 83 94 H 72 Respiratory Rate Blood Pressure O2 Sat by Pulse 95 97 96 Oximetry 12/17/19 12/17/19 12/17/19 01:43 01:48 01:53 Temperature Pulse Rate 72 72 74 Respiratory Rate Blood Pressure O2 Sat by Pulse 96 96 95 Oximetry 09/15/19 09/15/19 09/15/19 01:58 01:59 02:03 Temperature Pulse Rate 79 75 76 Respiratory Rate Blood Pressure 100/59 O2 Sat by Pulse 97 96 Oximetry 09/15/19 09/15/19 09/15/19 02:04 02:09 02:14 Temperature Pulse Rate 74 82 75 Respiratory Rate Blood Pressure O2 Sat by Pulse 97 96 97 Oximetry 09/15/19 09/15/19 09/15/19 02:19 02:24 02:29 Temperature Pulse Rate 73 76 71 Respiratory Rate Blood Pressure O2 Sat by Pulse 98 98 98 Oximetry 09/15/19 09/15/19 09/15/19 02:34 02:39 02:44 Temperature Pulse Rate 76 71 79 Respiratory Rate Blood Pressure O2 Sat by Pulse 98 98 98 Oximetry 09/15/19 09/15/19 09/15/19 02:49 02:54 02:59 Temperature Pulse Rate 74 72 72 Respiratory Rate Blood Pressure O2 Sat by Pulse 98 98 98 Oximetry 09/15/19 09/15/19 09/15/19 03:04 03:09 03:14 Temperature Pulse Rate 70 74 71 Respiratory Rate Blood Pressure O2 Sat by Pulse 98 97 98 Oximetry 09/15/19 09/15/19 09/15/19 03:19 03:24 03:29 Temperature Pulse Rate 76 69 77 Respiratory Rate Blood Pressure 109/69 O2 Sat by Pulse 98 98 98 Oximetry 09/15/19 09/15/19 09/15/19 04:26 09:22 09:25 Temperature 98.7 F Pulse Rate 76 75 Respiratory 18 Rate Blood Pressure 122/77 92/54 O2 Sat by Pulse Oximetry 09/15/19 11:40 Temperature Pulse Rate 80 Respiratory Rate Blood Pressure 107/57 O2 Sat by Pulse Oximetry - Exam Breasts: deferred Cardiovascular: Regular rate, Normal S1, Normal S2 Lungs: Clear to auscultation, Normal air movement Abdomen: Present: normal appearance, soft (gravid) Deep Tendon Reflex Grade: Normal but brisk +3 - Labs Labs: Abnormal Labs 09/13/19 09/13/19 09/13/19 23:30 23:30 23:30 WBC 11.6 H RBC 3.49 L MCHC 36 H RDW Plt Count 59 L Lymph % (Auto) Lymph # Seg Neutrophils % 76.1 H Seg Neutrophils # 8.8 H PT D-Dimer Sodium Carbon Dioxide BUN 6 L Creatinine 0.4 L Glucose Uric Acid 3.3 L Calcium Magnesium AST 50 H Lactate Dehydrogenase 389 H Total Protein Albumin 3.3 L Ur Specific [place] 1.002 L 09/14/19 09/14/19 09/14/19 05:52 10:01 10:01 WBC RBC MCHC RDW Plt Count 58 L Lymph % (Auto) Lymph # Seg Neutrophils % Seg Neutrophils # PT D-Dimer Sodium 134 L Carbon Dioxide 20 L BUN 4 L Creatinine 0.5 L Glucose 183 H Uric Acid Calcium 7.2 L D Magnesium 6.20 H AST 60 H Lactate Dehydrogenase Total Protein 6.2 L Albumin 3.3 L Ur Specific [place] 09/14/19 09/15/19 09/15/19 10:01 05:50 05:50 WBC RBC 3.32 L MCHC RDW 15.3 H Plt Count 72 L Lymph % (Auto) Lymph # Seg Neutrophils % Seg Neutrophils # PT 12.0 L D-Dimer 1030.94 H Sodium Carbon Dioxide BUN Creatinine Glucose Uric Acid Calcium Magnesium AST Lactate Dehydrogenase Total Protein Albumin Ur Specific [place] 09/15/19 11:25 WBC RBC 3.35 L MCHC RDW Plt Count 79 L Lymph % (Auto) 10.1 L Lymph # 0.8 L Seg Neutrophils % 87.8 H Seg Neutrophils # PT D-Dimer Sodium Carbon Dioxide BUN Creatinine Glucose Uric Acid Calcium Magnesium AST Lactate Dehydrogenase Total Protein Albumin Ur Specific [place] Laboratory Results - last 24 hr 09/15/19 09/15/19 09/15/19 05:50 05:50 11:25 WBC 6.9 7.5 RBC 3.32 L 3.35 L Hgb 10.4 10.4 Hct 30.5 30.8 MCV 92 92 MCH 31 31 MCHC 34 34 RDW 15.3 H 15.0 Plt Count 72 L 79 L Lymph % (Auto) 10.1 L [place] % (Auto) 2.0 Eos % (Auto) 0.0 Baso % (Auto) 0.1 Lymph # 0.8 L [place] # 0.1 Eos # 0.0 Baso # 0.0 Seg Neutrophils % 87.8 H Seg Neutrophils # 6.6 PT 12.0 L INR 0.88 APTT 28.2
--- NOTE | 2019-09-16 11:53 | Discharge Summary ---
Providers - Providers Date of Admission: 09/14/19 00:19 Date of discharge: 09/15/19 Attending physician: BETH EPPS MD 09/14/19 01:14 Consult to Physician [CONS] Routine Comment: Consulting Provider: KATIE MARTINEZ Physician Instructions: Reason For Exam: Pre-Eclampsia Primary care physician: BETH EPPS MD Hospitalization Reason for admission: labor, other (elevated blood pressure on admission) Delivery: other (not delivered) Hospital course: Patient was admitted for labor and given steroids. Upon admission, her blood pressure was elevated and her platelets were low at 59k. A consult from [facility] felt that the picture was consistent for preeclampsia, however, once the patient was no longer in pain, her bp normalized. In addition, her platelets increased to 79k. Plan for discharge on today with outpatient follow up Condition at discharge: Good Disposition: DC-01 TO HOME OR SELFCARE Plan - Provider Discharge Summary Activity: routine, no sex for 6 weeks, no heavy lifting 4 weeks Diet: routine Instructions: routine Additional instructions: [] Smoking cessation referral if applicable(refer to patient education folder for contact #) [] Refer to [facility]'s [facility] Booklet Call your doctor immediately for: * Fever > 100.5 * Heavy vaginal bleeding ( >1 pad per hour) * Severe persistent headache * Shortness of breath * Reddened, hot, painful area to leg or breast * Drainage or odor from incision. * Keep incision clean and dry at all times and follow doctor's instructions regarding bathing/showering - Follow up plan Follow up: KINA HERNANDEZ MD [Staff Physician] - 7 Days
[2019-09-16 14:59] LABS: ANA Screen, IFA Negative (Negative)
== END 2019-09-15 15:40 | disposition home or self-care (01) ==
LOC: TRG 20:57 → LD 09-14 00:19
PROVIDERS: ADMIT Obstetrics & Gynecology; ATTEND Obstetrics & Gynecology
DX: O21.2 Late vomiting of pregnancy (principal); O62.9 Abnormality of forces of labor, unspecified; R03.0 Elevated blood-pressure reading, without diagnosis of hypertension; Z3A.31 31 weeks gestation of pregnancy
CPT/HCPCS: 36415; 59025; 76816; 76819; 76820; 80053; 80307; 81001; 82731; 83615; 83735; 84550; 85025; 85027; 85379; 85384; 85610; 85730; 86038; 86850; 86900; 86901; 96365; 96366; 96375; 96376; G0378; J0702; J2405; J3010; J3475; J7120; 96360

== ENCOUNTER 2019-09-18 20:33 | Inpatient (IN) | payer MEDICAID ==
[2019-09-18] MEDS ORDERED: LIDOCAINE (2%) 20 MG/1 ML VIAL 20 ML MDV INFILTRATI ONE (22:50)
[2019-09-18] MEDS ORDERED: MINERAL OIL 30 ML ORAL LIQD PO PRN (22:50)
[2019-09-18] MEDS ORDERED: TERBUTALINE 1 MG/1 ML INJ SUB-Q PRN (22:50)
[2019-09-18] MEDS ORDERED: ePHEDrine SULFATE 50 MG/1 ML INJ IV PRN (22:50)
[2019-09-18] MEDS ORDERED: BUTORPHANOL 2 MG/1 ML INJ IV PRN (22:50)
[2019-09-18] MEDS ORDERED: TERBUTALINE 1 MG/1 ML INJ IVP PRN (22:50)
[2019-09-18] MEDS ORDERED: MAGNESIUM SULFATE 4 GM/100 ML BAG IV ONE (22:53)
[2019-09-18] MEDS ORDERED: OXYTOCIN DRIP 30 UNITS/500 ML BAG IV SCH ×2 (23:00)
[2019-09-18] MEDS ORDERED: MAGNESIUM SULFATE 40GM/1000ML 40 GM/1,000 ML BAG IV SCH (23:00)
[2019-09-18] MEDS ORDERED: LACTATED RINGERS 1,000 ML IV SCH (23:00)
[2019-09-18] MEDS ORDERED: OXYTOCIN 20 UNIT/1000ML DRIP 20 UNITS/1,000 ML BAG IV SCH (23:00)
[2019-09-19 00:04] LABS: Hematocrit 31.2 % (30.3-42.9); Hemoglobin 10.8 gm/dl (10.1-14.3); Mean Corpuscular HGB Conc 35 % (30-34); Mean Corpuscular Volume 92 fl (79-97); Red Cell Distribution Width 15.1 % (13.2-15.2)
[2019-09-19] MEDS ORDERED: ONDANSETRON 4 MG/2 ML INJ IV PRN ×2 (00:04→16:32)
[2019-09-19] MEDS ORDERED: FAMOTIDINE 20 MG/2 ML INJ IV ONE ×2 (00:09→00:25)
[2019-09-19 00:10] LABS: Bacteria,Urine 1+ /HPF (Negative); Bilirubin,Urine NEG (Negative); Blood,Urine SM (Negative); Color,Urine Yellow (Yellow); Mucus,Urine FEW /HPF; Protein,Urine <15 mg/dL mg/dL (Negative); Urobilinogen,Urine < 2.0 mg/dL (<2.0)
[2019-09-19 00:17] LABS: Platelet Count 80 K/mm3 (140-440)
[2019-09-19 00:20] LABS: Alanine Aminotransferase 32 units/L (7-56)
[2019-09-19] MEDS: fentaNYL 100 MCG/2 ML INJ IV PRN ×2 (01:41→07:54)
[2019-09-19 08:17] LABS: Uric Acid 4.3 mg/dL (3.5-7.6)
[2019-09-19] MEDS ORDERED: D5W/LACTATED RINGERS 1,000 ML IV ONE (12:15)
--- NOTE | 2019-09-19 12:45 | History and Physical Report ---
History of Present Illness Date of examination: 09/19/19 Chief complaint: I'm in pain History of present illness: Pt is a 29 year old who presented to L7D again with complaint of unbearable abdominal pain. she denies bleeding or LOF> Past History - Obstetrical History : 4 Medications and Allergies Allergies Allergy/AdvReac Type Severity Reaction Status Date / Time Penicillins Allergy Unknown Verified 11/09/14 13:11 tree nut Allergy Swelling Verified 11/09/14 13:12 Home Medications Medication Instructions Recorded Confirmed Last Taken Type Nitrofurantoin [place]/M-Cryst 100 mg PO Q12HR #14 capsule 09/13/19 09/19/19 Unknow n Rx [Macrobid CAP] Promethazine [Phenergan] 25 mg PO Q6HR PRN #30 tab 09/13/19 09/19/19 09/17/19 10:00 Rx Active Meds: Active Medications Butorphanol Tartrate (Stadol) 2 mg IV Q2H PRN PRN Reason: Pain , Severe (7-10) Ephedrine Sulfate (Ephedrine Sulfate) 10 mg IV Q2M PRN PRN Reason: Hypotension Fentanyl (Sublimaze) 100 mcg IV Q2H PRN PRN Reason: Labor Pain Last Admin: 09/19/19 07:54 Dose: 100 mcg Documented by: Oxytocin/Sodium Chloride (Pitocin/Ns 20 Unit/1000ml Drip) 20 units in 1,000 mls @ 125 mls/hr IV DIRECT MINOR Oxytocin/Sodium Chloride (Pitocin/Ns 30 Unit/500ml) 30 units in 500 mls @ 1 mls/hr IV TITR MINOR; Protocol Oxytocin/Sodium Chloride (Pitocin/Ns 30 Unit/500ml) 30 units in 500 mls @ 2 mls/hr IV TITR MINOR; Protocol Last Titration: 09/19/19 10:35 Dose: 20 mls/hr, 20 mls/hr Documented by: Lactated Ringer's (Lactated Ringers) 1,000 mls @ 125 mls/hr IV DIRECT MINOR Last Admin: 09/19/19 00:11 Dose: 75 mls/hr Documented by: Clindamycin HCl (Cleocin 900 Mg/50 Ml) 900 mg in 50 mls @ 100 mls/hr IV Q8HR MINOR; Protocol Last Admin: 09/19/19 08:03 Dose: 100 mls/hr Documented by: Magnesium Sulfate (Magnesium Sulfate 40gm/1000ml) 40 gm in 1,000 mls @ 50 mls/hr IV DIRECT MINOR Last Infusion: 09/19/19 10:35 Dose: 0 gm/hr, 0 mls/hr Documented by: Dextrose/Lactated Ringer's ([email or web address]) 1,000 mls @ 500 mls/hr IV DIRECT MINOR Stop: 09/19/19 14:59 Mineral Oil (Mineral Oil) 30 ml PO QHS PRN PRN Reason: Constipation Ondansetron HCl (Zofran) 4 mg IV Q8H PRN PRN Reason: Nausea And Vomiting Last Admin: 09/19/19 00:11 Dose: 4 mg Documented by: Terbutaline Sulfate (Brethine) 0.25 mg SUB-Q ONCE PRN PRN Reason: Hyperstimulation/Hypertonicity Terbutaline Sulfate (Brethine) 0.25 mg IVP ONCE PRN PRN Reason: Hyperstimulation/Hypertonicity - Vital Signs Vital signs: Vital Signs Pulse BP 82 148/83 09/18/19 21:52 09/18/19 21:52 Temp Pulse Resp BP Pulse Ox 97.4 F L 77 14 147/90 97 09/19/19 10:30 09/19/19 12:32 09/19/19 10:30 09/19/19 12:32 09/19/19 12:14 - Physical Exam Breasts: Cardiovascular: Regular rate, Normal S1, Normal S2 Lungs: Positive: Clear to auscultation, Normal air movement Abdomen: Positive: normal appearance, soft, normal bowel sounds. Negative: distention, tenderness Vulva: both: normal Vagina: Positive: normal moisture. Negative: discharge Cervix: Negative: lesion, discharge Uterus: Positive: normal size, normal contour Adnexa: both: normal Anus/Rectum: Positive: normal perianal skin, heme negative. Negative: rectal mass, hemorrhoids Extremities: Deep Tendon Reflex Grade: Normal +2 - Obstetrical Cervical Dilatation: 2 Cervical Effacement Percentage: 70 Uterine Contraction Pattern: Irregular Uterine Contraction Intensity: Moderate Results Result Diagrams: 09/19/19 12:55 09/18/19 22:55 Abnormal lab results 09/18/19 09/18/19 09/18/19 Range/Units 22:55 22:55 22:55 WBC 12.6 H (4.5-11.0) K/mm3 RBC 3.40 L (3.65-5.03) M/mm3 MCHC 35 H (30-34) % Plt Count 80 L (140-440) K/mm3 Creatinine 0.5 L (0.7-1.2) mg/dL Magnesium (1.7-2.3) mg/dL AST 44 H (5-40) units/L Lactate Dehydrogenase 269 H (91-180) units/L Urine pH 8.0 H (5.0-7.0) 09/19/19 Range/Units 06:09 WBC (4.5-11.0) K/mm3 RBC (3.65-5.03) M/mm3 MCHC (30-34) % Plt Count (140-440) K/mm3 Creatinine (0.7-1.2) mg/dL Magnesium 7.60 H (1.7-2.3) mg/dL AST (5-40) units/L Lactate Dehydrogenase (91-180) units/L Urine pH (5.0-7.0) All other labs normal. Assessment and Plan IUP at 32 weeks here for induction secondary to atypical preeclampsia and iugr. Will plan to proceed with induction of labor as this is patient's second admission for same issue. Will begin pitocin. Pt will receive clindamycin for pcn allergy
[2019-09-19] MEDS ORDERED: D5W/LACTATED RINGERS 1,000 ML IV SCH (13:00)
[2019-09-19 13:20] LABS: Hematocrit 31.6 % (30.3-42.9); Hemoglobin 10.9 gm/dl (10.1-14.3); Mean Corpuscular HGB Conc 35 % (30-34); Mean Corpuscular Volume 91 fl (79-97); Red Blood Count 3.49 M/mm3 (3.65-5.03); Red Cell Distribution Width 15.2 % (13.2-15.2)
[2019-09-19 13:27] LABS: Platelet Count 58 K/mm3 (140-440)
[2019-09-19 13:34] LABS: Amphetamine Screen,Urine PRESUMPTIVE NEGATIVE; Benzodiazepines Screen,Urine PRESUMPTIVE NEGATIVE; Cannabinoid Screen,Urine PRESUMPTIVE NEGATIVE; Cocaine Screen,Urine PRESUMPTIVE NEGATIVE; Methadone Screen,Urine PRESUMPTIVE NEGATIVE; Opiate Screen,Urine PRESUMPTIVE NEGATIVE
--- NOTE | 2019-09-19 14:23 | Procedure Note ---
OB Delivery Note - Delivery Date of Delivery: 09/19/19 Surgeon: KINA HERNANDEZ Estimated blood loss: 200cc - Vaginal Delivery presentation: vertex Delivery position: OA Intrapartum events: labor-<37 weeks, precipitous labor- <3hr Delivery induction: oxytocin Delivery monitor: external FHT, external uterine Route of delivery: Delivery placenta: spontaneous Delivery cord: 3 umbilical vessels Episiotomy: none Delivery laceration: none Anesthesia: none Delivery comments: Pt was checked by nursing staff and found to be 6cm dilated. With next contraction patient pushed and delivered a viable female precipitously in the bed with nurse at bedside.Apgars 9,9. NICU called stat. had spontaneous cry. Placenta delivered immediately after baby due to maternal expulsive forces. No lacerations. Excellent hemostasis. Weight 2 pounds 10 ounces - Infant A at 1 minute: 9 at 5 minutes: 9 Gender: Female (2'10 " 1546g)
[2019-09-19] MEDS ORDERED: WITCH HAZEL/ GLYCERIN PAD TP PRN (16:32)
[2019-09-19] MEDS ORDERED: diphenhydrAMINE 25 MG CAP PO PRN (16:32)
[2019-09-19] MEDS ORDERED: KETOROLAC 30 MG/1 ML INJ IV PRN (16:32)
[2019-09-19] MEDS ORDERED: MAGNESIUM HYDROXIDE (MOM) ORAL LIQD UDC PO PRN (16:32)
[2019-09-19] MEDS ORDERED: PROMETHAZINE 25 MG TAB PO PRN (16:32)
[2019-09-19] MEDS ORDERED: PROMETHAZINE 25 MG RECT SUPP PR PRN (16:32)
[2019-09-19] MEDS ORDERED: LANOLIN/ZINC/DIMETHICONE (LANSINOH) 7 GM TP PRN (16:32)
[2019-09-19] MEDS: IBUPROFEN 600 MG TAB PO SCH (16:55)
[2019-09-19] MEDS: ACETAMINOPHEN 325 MG TAB PO PRN ×2 (17:04→22:47)
[2019-09-19] MEDS: DOCUSATE SODIUM 100 MG CAP PO SCH (22:45)
[2019-09-20] MEDS: IBUPROFEN 600 MG TAB PO SCH ×4 (00:56→23:23)
[2019-09-20 03:18] LABS: Hematocrit 25.9 % (30.3-42.9); Hemoglobin 8.9 gm/dl (10.1-14.3)
[2019-09-20] MEDS: ACETAMINOPHEN 325 MG TAB PO PRN ×3 (04:35→16:20)
[2019-09-20] MEDS: DOCUSATE SODIUM 100 MG CAP PO SCH ×2 (11:35→23:23)
[2019-09-20] MEDS: PRENATAL VIT27-FE FUMARATE-FOLIC ACID VIT TAB PO SCH (11:35)
--- NOTE | 2019-09-20 13:09 | Progress Note ---
Assessment and Plan PPD 1 s/p at . Patient doing well. Plan for discharge on today. Subjective - Subjective Date of service: 09/20/19 Interval history: Pt is a 29 year old who presented to L7D again with complaint of unbearable abdominal pain. she denies bleeding or LOF> Patient reports: appetite normal, voiding normally, pain well controlled, ambulating normally : in NICU Objective - Vital Signs Latest vital signs: Vital Signs Temp Pulse Resp BP BP Pulse Ox 09/20/19 12:45 98.2 F 89 20 108/81 09/20/19 08:15 98.2 F 73 20 112/68 09/20/19 05:35 18 09/20/19 04:35 18 09/20/19 01:31 98.2 F 92 H 14 107/69 97 09/19/19 23:47 18 09/19/19 22:47 18 09/19/19 21:42 98.2 F 95 H 16 98/66 98 09/19/19 17:03 97.5 F L 80 18 104/75 100 09/19/19 15:42 89 99/64 09/19/19 15:28 84 101/68 09/19/19 15:20 98 F 16 09/19/19 15:18 90 152/66 09/19/19 14:59 76 100 09/19/19 14:54 76 99 09/19/19 14:49 73 98 09/19/19 14:44 78 100 09/19/19 14:42 75 133/90 09/19/19 14:39 80 100 09/19/19 14:34 68 99 09/19/19 14:29 80 98 09/19/19 14:27 76 133/84 09/19/19 14:24 74 100 09/19/19 14:19 74 98 09/19/19 14:14 74 99 09/19/19 14:13 76 138/78 09/19/19 14:09 85 99 09/19/19 14:04 87 100 09/19/19 13:59 79 99 09/19/19 13:57 69 127/90 09/19/19 13:54 69 98 09/19/19 13:49 71 98 09/19/19 13:44 78 99 09/19/19 13:43 81 136/93 09/19/19 13:32 68 130/79 Intake and Output 09/19/19 09/20/19 09/20/19 22:59 06:59 14:59 Intake Total 480 260 240 Output Total 400 Balance 80 260 240 Intake: Oral 240 240 Intake, Free Water 240 260 Output: Urine 400 Void 400 Other: Total, Intake Amount 240 120 Total, Output Amount 400 # Voids Void 0 2 1 - Exam Breasts: Present: deferred Cardiovascular: Present: Regular rate, Normal S1, Normal S2 Lungs: Present: Clear to auscultation, Normal air movement Abdomen: Present: normal appearance, soft Uterus: Present: normal, firm Extremities: Present: normal - Labs Labs: Abnormal lab results 09/19/19 09/20/19 Range/Units 12:55 02:41 RBC 3.49 L (3.65-5.03) M/mm3 Hgb 8.9 L (10.1-14.3) gm/dl Hct 25.9 L (30.3-42.9) % MCHC 35 H (30-34) % Plt Count 58 L (140-440) K/mm3
--- NOTE | 2019-09-20 13:11 | Discharge Summary ---
Providers - Providers Date of Admission: 09/19/19 13:44 Date of discharge: 09/20/19 Attending physician: KINA HERNANDEZ Primary care physician: KINA HERNANDEZ Hospitalization Reason for admission: induction of labor Episiotomy: none Laceration: none Other procedures: none complications: none Discharge diagnosis: delivery [place] baby: female Condition at discharge: Good Disposition: DC-01 TO HOME OR SELFCARE Plan - Discharge Medications Prescriptions: Ibuprofen [Motrin 600 MG tab] 600 mg PO Q6H #40 tablet - Provider Discharge Summary Activity: routine, no sex for 6 weeks, no heavy lifting 4 weeks, no strenuous exercise Diet: routine Instructions: routine Additional instructions: [] Smoking cessation referral if applicable(refer to patient education folder for contact #) [] Refer to [facility]'s [facility] Booklet Call your doctor immediately for: * Fever > 100.5 * Heavy vaginal bleeding ( >1 pad per hour) * Severe persistent headache * Shortness of breath * Reddened, hot, painful area to leg or breast * Drainage or odor from incision. * Keep incision clean and dry at all times and follow doctor's instructions regarding bathing/showering - Follow up plan Follow up: KINA HERNANDEZ MD [Primary Care Provider] - 14 Days
[2019-09-21 09:01] VITALS: BP 119/76
[2019-09-21] MEDS: DOCUSATE SODIUM 100 MG CAP PO SCH (12:12)
[2019-09-21] MEDS: PRENATAL VIT27-FE FUMARATE-FOLIC ACID VIT TAB PO SCH (12:12)
[2019-09-21] MEDS: IBUPROFEN 600 MG TAB PO SCH (16:38)
== END 2019-09-21 16:36 | disposition home or self-care (01) | DRG 775 ==
LOC: TRG 20:33 → LD 23:00 → TRG 09-19 13:43 → LD 09-19 13:44 → OB 09-19 15:54
PROVIDERS: ADMIT Obstetrics & Gynecology; ATTEND Obstetrics & Gynecology
PROC: 10E0XZZ Delivery of Products of Conception, External Approach (ICD-10-PCS; principal; 2019-09-19)
DX: O60.14X0 Preterm labor third trimester with preterm delivery third trimester, not applicable or unspecified (principal); O36.5930 Maternal care for other known or suspected poor fetal growth, third trimester, not applicable or unspecified; O14.94 Unspecified pre-eclampsia, complicating childbirth; O62.3 Precipitate labor; Z3A.32 32 weeks gestation of pregnancy; Z37.0 Single live birth; Z88.0 Allergy status to penicillin; Z91.018 Allergy to other foods
CPT/HCPCS: 36415; 80307; 81001; 82565; 83615; 83735; 84450; 84460; 84550; 85014; 85018; 85027; 86850; 86900; 86901; 88307; G0378; J0595; J2405; J2590; J3010; J3475; J7120; J7121

== ENCOUNTER 2019-10-07 05:47 | Day surgery (SDC) | payer MEDICAID ==
--- NOTE | 2019-10-06 22:48 | Short Stay Summary ---
Short Stay Documentation Date of service: 10/07/19 Narrative H&P: Pt is a 29 year old who presents for elective sterilization approximately 3 weeks post delivery of an at 34 weeks. - History Principal diagnosis: Undesired fertilty H&P: obtained from office Past Medical History: hypertension, other Social history: , other (remote drug abuse) - Allergies and Medications Current Medications: Allergies Penicillins Allergy (Verified 10/01/19 09:57) Unknown tree nut Allergy (Verified 10/01/19 09:57) Swelling Home Medications Medication Instructions Recorded Confirmed Last Taken Type No Known Home Medications [No 10/01/19 10/01/19 Unknown History Reported Home Medications] Active Medications Celecoxib (Celebrex) 200 mg PO PREOP NR Stop: 10/07/19 23:59 Gabapentin (Gabapentin) 300 mg PO PREOP NR Stop: 10/07/19 23:59 Lactated Ringer's (Lactated Ringers) 1,000 mls @ 100 mls/hr IV DIRECT MINOR Midazolam HCl (Versed) 2 mg IV PREOP NR Stop: 10/07/19 23:59 Scopolamine (Transderm-Scop) 1 each TD PREOP NR Stop: 10/09/19 05:59 - Physical exam General appearance: no acute distress HEENT: Atraumatic Lungs: Clear to auscultation, Normal air movement Breasts: deferred Heart: Regular rate, Normal S1, Normal S2 Gastrointestinal: normal, normoactive bowel sounds Female Genitourinary: deferred Rectal Exam: deferred Extremities: No edema - Brief post op/procedure progress note Date of procedure: 10/07/19 Pre-op diagnosis: Undesired fertility Post-op diagnosis: same Procedure: Laparoscopic bilateral salpingectomy Anesthesia: GETA Findings: Normal appearing uterus tubes and ovaries Surgeon: KINA HERNANDEZ Estimated blood loss: minimal Pathology: list (portion of right and left fallopian tubes) Specimen disposition: to lab Condition: stable - Hospital course Hospital course: unremarkable - Disposition Condition at discharge: Good Disposition: DC- TO HOME OR SELFCARE Short Stay Discharge Plan Activity: advance as tolerated Weight Bearing Status: Weight Bear as Tolerated Diet: regular Wound: keep clean and dry Follow up with: KINA HERNANDEZ MD [Primary Care Provider] - 14 Days Prescriptions: Ibuprofen [Motrin] 800 mg PO Q8HR PRN #40 tablet PRN Reason: Pain, Moderate (4-6) Ketorolac [Toradol] 10 mg PO Q6H PRN #16 tablet PRN Reason: Pain
[~2019-10-07 05:47] MED LIST: LACTATED RINGERS 1,000 ML IV SCH
[2019-10-07] MEDS ORDERED: SCOPOLAMINE TRANSDERMAL PATCH 72 HR TD NR (06:00)
[2019-10-07] MEDS ORDERED: CELECOXIB 200 MG CAP PO NR (06:00)
[2019-10-07] MEDS ORDERED: ceFAZolin/Water 2 GM/20 ML 2 GM/20 ML SYRINGE IV NR (06:00)
[2019-10-07] MEDS ORDERED: GABAPENTIN 300 MG CAP PO NR (06:00)
[2019-10-07] MEDS ORDERED: MIDAZOLAM 2 MG/2 ML INJ IV NR (06:00)
[2019-10-07] MEDS ORDERED: BACTERIOSTATIC SODIUM CHLORIDE 0.9% 30 ML VIAL INFILTRATI ONE (06:38)
[2019-10-07] MEDS ORDERED: HYDROmorphone 1 MG/1 ML INJ ONE (07:16)
[2019-10-07] MEDS ORDERED: PROPOFOL 200 MG/20 ML VIAL IV ONE (07:16)
[2019-10-07] MEDS ORDERED: ROCURONIUM 50 MG/5 ML INJ IV ONE (07:17)
[2019-10-07] MEDS ORDERED: FAMOTIDINE 20 MG/2 ML INJ IV NR (07:17)
[2019-10-07] MEDS ORDERED: LIDOCAINE MPF (2%) 20 MG/1 ML VIAL 5 ML ONE (07:17)
[2019-10-07] MEDS ORDERED: BUPIVACAINE/PF (0.25%) 2.5 MG/ML 30 ML VIAL INFILTRATI ONE ×3 (07:22→08:55)
--- NOTE | 2019-10-07 07:31 | Anesthesia Day of Surgery ---
Anesthesia Day of Surgery - Day of Surgery Patient Examined: Yes Patient H&P Reviewed: Yes Patient is NPO: Yes
--- NOTE | 2019-10-07 07:31 | Anesthesia Consultation ---
Anesthesia Consult and Med Hx Date of service: 10/07/19 - Airway Anesthetic Teeth Evaluation: Edentulous ROM Head & Neck: Adequate Mental/Hyoid Distance: Adequate Mallampati Class: Class II Intubation Access Assessment: Probably Good - Pulmonary Exam CTA: Yes - Cardiac Exam Cardiac Exam: RRR - Pre-Operative Health Status ASA Pre-Surgery Classification: ASA2 Proposed Anesthetic Plan: General - Pulmonary Hx Smoking: Yes Hx Respiratory Symptoms: No - Cardiovascular System Hx Hypertension: No Hx Heart Attack/AMI: No - Central Nervous System CVA: No - Gastrointestinal Hx Gastroesophageal Reflux Disease: No - Endocrine Hx Renal Disease: No Hx Liver Disease: No Hx Insulin Dependent Diabetes: No Hx Non-Insulin Dependent Diabetes: No Hx Thyroid Disease: No - Other Systems Hx Obesity: No
[2019-10-07] MEDS ORDERED: CLINDAMYCIN 600 MG/50 mL 600 MG/50 ML BAG IV NR (08:02)
[2019-10-07] MEDS ORDERED: CLINDAMYCIN 600 MG/50 mL 600 MG/50 ML BAG IV ONE (08:02)
[2019-10-07] MEDS ORDERED: GENTAMICIN/NS 80 MG/100 ML 100 ML IV ONE ×2 (08:26→08:29)
[2019-10-07] MEDS ORDERED: ONDANSETRON 4 MG/2 ML INJ ONE (08:54)
[2019-10-07] MEDS ORDERED: KETOROLAC 30 MG/1 ML INJ ONE (08:54)
[2019-10-07] MEDS ORDERED: NEOSTIGMINE 10MG/10 ML INJ MDV ONE (08:54)
[2019-10-07] MEDS ORDERED: GLYCOPYRROLATE 0.4 MG/2 ML INJ ONE (08:55)
[2019-10-07] MEDS: HYDROmorphone 1 MG/1 ML INJ IV PRN ×2 (09:15→09:25)
--- NOTE | 2019-10-07 09:37 | Operative Report ---
Operative Report Operative Report: Preoperative diagnosis: Undesired fertility Postoperative diagnosis: Same Procedure: Bilateral laparoscopic salpingectomy Surgeon: Lianne Osman Anesthesia: General EBL: Minimal IV fluids: 900 mL Urine output: 150 mL Findings: Normal uterus tubes and ovaries Specimens: Portion of right and left fallopian tube Complications: None The patient was properly identified as herself. She was then taken to the OR with IV running and in place. She was given general anesthesia without difficulty. She was placed in a dorsal lithotomy position. She was then prepped and draped in normal sterile fashion. Attention was turned to the patient's vagina. Her bladder was drained of clear urine with a red rubber catheter. The speculum was then placed the patient's vagina. The cervix was visualized and grasped with tenaculum. The acorn cannula was then inserted. The surgeon's gloves were changed and attention turned to the patient's abdomen. A small incision was made in the patient's umbilicus incision a 5 mm trocar was placed. The laparoscope confirmed intra-abdominal placement. The abdomen was insufflated with CO2 gas to approximately 25 mmHg. Both fallopian tubes were identified. With direct visualization a second trocar was placed through an incision in the left lower quadrant. Both tubes were found and followed out to the fimbriated ends. Each tube was cauterized at the portion nearest the cornua, then cauterized across the broad ligament until the tube was completely detached. There was excellent hemostasis at the end of this portion of the procedure. Each tube was handed off for pathology. At this point the abdomen was deflated. All instruments were then removed from the abdomen. The incisions were then closed with 4-0 Monocryl. The incisions were also injected with quarter percent Marcaine. The patient tolerated the procedure well she was then awakened and taken recovery in stable condition. Sponge needle and instrument counts were correct 2.
[2019-10-07 10:35] VITALS: BP 102/69
--- NOTE | 2019-10-07 10:58 | Post Anesthesia Evaluation ---
- Post Anesthesia Evaluation Patient Participated: Yes Airway Patent: Yes Stable Respiratory Function: Yes Nausea/Vomiting: No Temp > 96.8F: Yes Pain Manageable: Yes Adequeate Hydration: Yes Anesthesia Complications: No
== END 2019-10-07 10:25 | disposition home or self-care (01) ==
LOC: OR 05:47
PROVIDERS: ATTEND Obstetrics & Gynecology
DX: Z30.2 Encounter for sterilization (principal); F41.8 Other specified anxiety disorders; F17.210 Nicotine dependence, cigarettes, uncomplicated; Z88.0 Allergy status to penicillin; Z88.8 Allergy status to other drugs, medicaments and biological substances; Z79.899 Other long term (current) drug therapy; Z72.89 Other problems related to lifestyle; Z98.890 Other specified postprocedural states; Z83.3 Family history of diabetes mellitus
CPT/HCPCS: 58661; 81025; 88302; J1170; J1580; J1885; J2250; J2405; J2704; J2710; J7120; J0690